=== PATIENT | male | born 1950 ===

== ENCOUNTER → 2019-05-30 15:20 | Outpatient (BNVA) | payer MEDICARE, SELFPAY | PROVIDERS: PCP Nurse Practitioner; Referring Provider Family Medicine; Visit Provider Surgery | DX: K40.90 Unilateral inguinal hernia, without obstruction or gangrene, not specified as recurrent (principal) | CPT/HCPCS: 99202 ==

== ENCOUNTER 2019-07-12 08:51 | Day surgery (SDC) | payer MEDICARE, SELFPAY ==
--- NOTE | 2019-07-12 08:46 | HPE_ITS ---
Date of service: 07/12/19 Time of Service: 08:47 Assessment and Plan (1) Left inguinal hernia: Current visit: No Status: Acute We discussed left inguinal hernia repair. The procedure was described including the risk of infection, bleeding, recurrence, chronic pain or numbness or vascular injury. The alternative is observation although hernias tend to enlarge and become more symptomatic over time. The patient was advised not to lift more than 15 pounds for one month postop. The patient agrees to proceed. History of Present Illness Narrative: Had some swelling and discomfort in left groin after lifting ramps for trailer. Still sore with prolonged walking. Helps to wear a brace. Not using any OTC meds. Owns repair shop, works on motorcycles, etc.. Review of Systems Constitutional Denies fatigue and Denies headache(s) Eyes Denies change in vision ENT Denies headache(s) and Denies neck mass Cardiovascular Denies chest pain, Denies edema, Denies palpitations and Denies dyspnea Respiratory Denies cough, Denies dyspnea and Denies wheezing Gastrointestinal Denies abdominal pain, Denies hematochezia and Denies change in bowel habits Genitourinary Denies dysuria Musculoskeletal Denies joint swelling Integumentary/Breasts Denies new lesions and Denies rash Neurologic Denies confusion, Denies headache(s) and Denies focal weakness Psychiatric Reports system reviewed and no additional complaints, except as docu and Denies confusion Endocrine Denies fatigue and Denies palpitations Hematologic/Lymphatic Denies easy bleeding and Denies lymphadenopathy Allergic/Immunologic Denies wheezing [facility] Medical History Calcium kidney stone (Resolved) Fracture of left clavicle (Resolved) Hyperlipidemia (Chronic) Left inguinal hernia (Acute) Surgical History H/O nasal septoplasty (Resolved) S/P right rotator cuff repair (Resolved) Family History Other Cancer Social History Smoking/Tobacco Use Status: Never Second Hand Exposure: Yes Alcohol Intake: current Alcohol Intake frequency: a few times a week Alcohol type: wine Drug use: Never Substance use type: does not use Do you feel safe at home: Yes Do you feel safe in your relationship?: Yes Additional Social history: Owns repair shop Meds Home Medications Medication Instructions Recorded Confirmed Type Unknown [No Known Home Meds] 05/19/19 05/30/19 History Allergies Allergy/AdvReac Type Severity Reaction Status Date / Time No Known Allergies Allergy Verified 05/30/19 15:54 Exam Const General: healthy appearing and not in acute distress Nutritional Appearance: well nourished Orientation: oriented x3 HENMT Head: normal to inspection Eyes Sclera: sclerae normal Pupils: PERRL Neck Neck: no lymphadenopathy Thyroid: thyroid normal Resp Effort & Inspection: normal respiratory effort Auscultation: clear to auscultation bilaterally and no wheezes Cardio Rate: regular rate Rhythm: regular rhythm GI Inspection: non-distended Palpation: soft, no hepatosplenomegaly and nontender Other: Reducible left inguinal hernia present Skin General skin exam: no rashes or lesions noted Neuro General: alert Cognition: normal cognition Extrem General: normal to inspection Psych Affect: normal affect Attitude: cooperative
--- NOTE | 2019-07-12 09:00 | ROE_ITS ---
DATE: JULY 12, 2019 Preoperative Diagnosis: Left inguinal hernia Postoperative Diagnosis: Left indirect inguinal hernia Operation: Left inguinal hernia repair with mesh Anesthesia: Local, TAP block and general. Surgeon: Yudy Yang M.D. Indications: This is a 69 year-old man with a bothersome yet reducible left inguinal hernia. He presents for repair. Procedure: The patient was placed supine on the operating table. After induction of general anesthetic, he had a TAP block placed. His left groin was then prepped and draped sterilely. The skin between the anterior superior iliac spine and pubic tubercle was infiltrated with local anesthetic and a small transverse incision was made. The subcutaneous tissue was divided with cautery. A vein was clamped, divided and ligated with #3-0 Vicryl ties. The external oblique fascia was identified was identified. A small incision was mad and extended through the external ring bluntly. This incision was also extended laterally. The spermatic cord was encircled at the level of the pubic tubercle with a Ricarda drain. There was a large cord lipoma that was dissected up to the internal ring and had a very narrow base. This was clamped, amputated and the remaining side ligated with #3-0 Vicryl tie. The hernia sac was moderated sized. It was dissected free from the spermatic cord using blunt and cautery dissection. It was then reduced through the internal ring. A medium sized plug was sutured in with a #2-0 Prolene stitch. A flat sheet of mesh was then placed in the floor of the inguinal canal and sutured in position in standard Bonita fashion. There was good hemostasis so the external oblique fascia was closed with a running #3-0 Vicryl stitch as was Hollis's fascia and the ski was closed with a running #4-0 Monocryl subcuticular stitch. He tolerated the procedure well and was stable to recovery. cc: Fabiana Mehta M.D.
[2019-07-12 09:16] VITALS: BP 146/85; PULSE 67; RESP 16; TEMP 36.1; O2SAT 95
[2019-07-12] MEDS: Lactated Ringers 1,000 ML 80 ML IV (09:44)
[2019-07-12] MEDS: ceFAZolin 2 GM/50 ML BAG IVPB (10:04)
--- NOTE | 2019-07-12 10:05 | PDOC.DSDIS_ITS ---
Discharge Plan Disposition Patient Disposition: HOME Condition: Good Discharge Details Reason For Visit: Left inguinal hernia repair Attending Provider: Yudy Yang Primary Care Provider: Fabiana Mehta Home Meds and New Rx's Prescriptions: Continued ibuprofen 200 mg Tablet 600 mg PO PRN PRNRF: 0 One Daily For Men 50+ Advanced 400-600-120 mcg-mcg-mg Tablet PO RF: 0 Discharge Instructions Additional Instructions: The top bandage can be removed tomorrow. The steri strips will usually stick for about a week. When the edges start to curl up, they can be removed. It is okay to shower tomorrow, the water can run over the steri strips Do not swim or soak in a tub for two weeks Call for any concerns including fever, increased pain, vomiting, incision red ness or drainage. Do not lift more than 15 pounds for four weeks. Walking and stairs are fine. Do not drive if on narcotic pain meds or if pain prevents safe driving. Constipation is not unusual. It is okay to take a stool softener or milk of magnesia if needed. Stand Alone Forms: Anes.Nerve Block Instructions, DSU Post op Instructions, Brandon Fajardo ([facility]) Referrals: Yudy Yang MD [ [facility] STAFF PHYSICIAN] - (Return in 10-14 days for a postop check) Activity:: Do not lift over 15 pounds for 4 weeks Shower/Bathe:: 24 hours Diet:: As Tolerated Discharge Orders Discharge Orders: Discharge Order (Routine); Ordered 07/12/19 Ordered By: Yudy Yang DS: Diagnosis Discharge Diagnosis (1) Left inguinal hernia: Status: Acute (2) S/P left inguinal hernia repair:
[2019-07-12] MEDS: Bupivacaine 0.25% Pres-Free 30 ML VIAL (10:30)
[2019-07-12 11:33] VITALS: BP 128/74; PULSE 62; RESP 13; TEMP 36.4; O2SAT 97
[2019-07-12 11:38] VITALS: BP 130/72; PULSE 61; RESP 15; TEMP 36.4; O2SAT 96
[2019-07-12 11:43] VITALS: BP 149/74; PULSE 66; RESP 16; TEMP 36.4; O2SAT 98
[2019-07-12 11:58] VITALS: BP 166/89; PULSE 65; RESP 19; TEMP 36.4; O2SAT 97
[2019-07-12 12:47] VITALS: BP 147/85; PULSE 93; RESP 16; TEMP 36.3; O2SAT 97
== END 2019-07-12 13:40 | disposition home or self-care (01) ==
PROVIDERS: PCP Family Medicine; Visit Provider Surgery
PROC: (CPT 49505; principal; 2019-07-12 10:00)
DX: K40.90 Unilateral inguinal hernia, without obstruction or gangrene, not specified as recurrent (principal); D17.6 Benign lipomatous neoplasm of spermatic cord; G89.18 Other acute postprocedural pain
CPT/HCPCS: 49505; 76942; NC; C1781; J0690; J1100; J1885; J2250; J2405

== ENCOUNTER → 2019-08-01 09:51 | Outpatient (BNVA) | payer MEDICARE, SELFPAY | PROVIDERS: PCP Family Medicine; Referring Provider Family Medicine; Visit Provider Surgery | DX: Z48.815 Encounter for surgical aftercare following surgery on the digestive system (principal); Z87.19 Personal history of other diseases of the digestive system ==

== ENCOUNTER 2019-11-09 09:25 | Outpatient (REF) | payer MEDICARE, SELFPAY ==
[2019-11-09 22:05] LABS: HCT 48.8 % (40.0-50.0); HGB 16.4 g/dL (13.5-17.5); Mean Corp. HGB Concentration 33.6 g/dL (32.0-36.0); Mean Corpuscular Hemoglobin 31.8 pg (27.0-33.0); Mean Corpuscular Volume 94.6 fL (80-95); Mean Platelet Volume 9.8 fL (8.0-11.0); Platelet Count 197 x1000/uL (130-400); RBC 5.16 m/cumm (4.50-6.00); RBC Distribution Width 12.3 % (11.8-14.1)
[2019-11-09 22:09] LABS: ALT 32 U/L (16-63); AST 15 U/L (15-37); Albumin 3.8 g/dL (3.4-5.0); Alkaline Phosphatase 83 U/L (46-116); Anion Gap 6.1 mmol/L (3-11); BUN 21 mg/dL (7-18); Bilirubin, Total 0.6 mg/dL (0.2-1.0); CO2 30.9 mmol/L (21.0-32.0); CREATININE 0.97 mg/dL (0.70-1.30); Calculated LDL 212 mg/dL; Chloride 107 mmol/L (98-107); Cholesterol 292 mg/dL (<200); Glucose 93 mg/dL (74-106); HDL Cholesterol 65 mg/dL (40-60); Sodium 144 mmol/L (136-145); Total Protein 7.4 g/dL (6.4-8.2); Triglyceride 75 mg/dL (<150)
[2019-11-11 11:49] LABS: PSA, Screening 0.5 ng/mL (0.0-4.5)
== END 2019-11-09 09:45 ==
LOC: NCHCN 09:25
PROVIDERS: PCP Family Medicine; Visit Provider Family Medicine
DX: E78.5 Hyperlipidemia, unspecified (principal); N20.0 Calculus of kidney; Z12.5 Encounter for screening for malignant neoplasm of prostate
CPT/HCPCS: 80053; 80061; 84153; 85027

== ENCOUNTER 2021-09-05 16:34 | Emergency (ER) | payer MEDICARE, SELFPAY ==
[2021-09-05 16:38] VITALS: BP 153/76; PULSE 54; RESP 14; O2SAT 97
--- NOTE | 2021-09-05 16:45 | DI.CT_ITS ---
Exam(s) CT RENAL COLIC WO EXAM: CT RENAL COLIC WO CLINICAL HISTORY: Right Flank pain. TECHNIQUE: Imaging Protocol: Axial computed tomography images with coronal and sagittal reformatted images were created and reviewed. CONTRAST MATERIAL: Noncontrast COMPARISON: No exams were available for comparison FINDINGS: ABDOMEN: Lung Bases: Normal where visualized. Small hiatal hernia. Liver: Normal attenuation. No measurable mass. Gallbladder and biliary tract: No radiodense calculus or dilation. Pancreas: Normal density, no calcifications or inflammatory process. Spleen: Normal. Kidneys: Normal size, contour and axis. Moderate right hydronephrosis secondary to a [address] one in the upper right ureter. Bilateral small nonobstructing renal calculi. Adrenal glands: No masses seen. Abdominal Aorta: Abdominal portion non-dilated. Minimal calcification. Small fatty containing umbilical hernia. PELVIS: Bladder: Symmetric distention, no gross wall thickening. Bowel: No obstruction or bowel wall thickening. Appendix normal. Minimal diverticulosis. Peritoneal cavity: No ascites, collection or mesenteric inflammatory response. Prostate calcification s. Prostate normal in size. Bones: Within normal limits. Previous left inguinal hernia repair. Small small fatty containing right inguinal hernia. IMPRESSION: Moderate right hydronephrosis secondary to a 7 millimeter calculus in the proximal right ureter. Oth er small bilateral nonobstructing stones are present. RADIATION DOSE DELIVERED: 761.25mGy.cm Total DLP DATA REPOSITORY: All CT scans at this facility are submitted to the National Radiology Data Registry (NRDR) Dose Index Registry (DIR) with the [employer] (ACR). RADIATION OPTIMIZATION: All CT scans at this facility use at least one of these dose optimization te chniques: automated exposure control; mA and/or kV adjustment per patient size (includes targeted exa ms where dose is matched to clinical indication); or iterative reconstruction.
[2021-09-05 17:04] LABS: Abs Immature Grans 0.02 10^3/uL (0.0-0.06); Absolute Basophil Count 0.03 10^3/uL (0.0-0.2); Absolute Eosinophil Count 0.24 10^3/uL (0.0-0.7); Absolute Lymphocyte Count 1.23 10^3/uL (1.2-3.4); Absolute Monocyte Count 0.56 10^3/uL (0.1-0.8); Absolute Neutrophil Count 4.73 10^3/uL (1.2-6.7); Basophils % 0.4; Eosinophils % 3.5; HCT 46.2 % (40.0-50.0); HGB 15.4 g/dL (13.5-17.5); Immature Grans % 0.3; Lymphocytes % 18.1; MCH 33.3 pg (27.0-33.0); MCHC 33.3 % (32.0-36.0); MPV 9.7 fL (8.0-11.0); Monocytes % 8.2; Neutrophils % 69.5; Nucleated RBC 0 %; Platelet Count 154 10^3/uL (130-400); RBC 4.62 10^6/uL (4.36-5.78); RDW 11.4 % (11.8-14.1); RDW-SD 41.3 fL; WBC 6.81 10^3/uL (4.4-10.8)
[2021-09-05 17:17] LABS: ALT 27 U/L (16-63); AST 17 U/L (15-37); Albumin 3.6 g/dL (3.4-5.0); Alkaline Phosphatase 84 U/L (46-116); Anion Gap 4.4 mmol/L (3-11); BUN 27 mg/dL (7-18); Bilirubin, Total 0.5 mg/dL (0.2-1.0); CO2 31.6 mmol/L (21.0-32.0); CREATININE 1.3 mg/dL (0.70-1.30); Calcium 9.7 mg/dL (8.5-10.1); Chloride 105 mmol/L (98-107); Estimated GFR 54.73 (mL/min/1.73m2); Glucose 114 mg/dL (74-106); Potassium 4.7 mmol/L (3.5-5.1); Sodium 141 mmol/L (136-145); Total Protein 7.6 g/dL (6.4-8.2)
--- NOTE | 2021-09-05 17:22 | W.ED.GENAD ---
Discharge Plan Disposition Patient Disposition: HOME Condition: Stable Discharge Details Clinical Impression: Calculus of proximal right ureter Primary Care Provider: Fabiana Mehta ED Provider: Mel Wood Home Meds and New Rx's Prescriptions: New tamsulosin 0.4 mg capsule 0.4 mg PO QHS 7 Days Qty: 7 RF: 0 hydrocodone-acetaminophen 5-325 mg tablet 1 tab PO Q8H PRN (Reason: pain) Qty: 6 RF: 0 No Action ibuprofen 200 mg Tablet 600 mg PO PRN PRNRF: 0 One Daily For Men 50+ Advanced 400-600-120 mcg-mcg-mg Tablet PO RF: 0 Discharge Instructions Instructions: Kidney Stones (ED), How to Strain Your Urine (ED) Additional Instructions: You have a 7 mm right kidney stone in your ureter. Please take the pain medication, Flomax and nausea medication as directed. Do not take any extra Tylenol with the pain medication. Take pain medication with food do not drive while taking this medication as it will make you sleepy. If you become dizzy or lightheaded please stop the tamsulosin. Call urology in the a.m. to make an appointment. Return to the ED for any fever, chills, inability to urinate or any concerns. Referrals: Fabiana Mehta [Primary Care Provider] - Jensen George MD [ [facility] STAFF PHYSICIAN] - 1 day Korina Rodriguez DNP [NURSE PRACTITIONER] - 5 days Medical Decision Making 71-year-old male presents to the ER with chief complaint of right flank pain which began approximately an hour and half prior to arrival per his . He reports acute onset positive nausea vomiting x2. She denies any fever chills. He does have a history of kidney stones approximately 20 years ago. He did not take any medication prior to arrival for pain. Denies any other associated symptoms. Past medical history includes kidney stone, hyperlipidemia, left inguinal hernia with repair. Right rotator cuff repair. 180: Patient reevaluation, pain much improved after Toradol and Zofran. Patient denies any fever chills flank pain or any other associated symptoms. He reports history of kidney stones. Does not currently see a urologist. [facility] CT Report: FINDINGS: Lungs: The visualized portions of the lung bases are normal. Diaphragm: Small hiatal hernia. Liver: Normal. No mass. Gallbladder and bile ducts: There has been a cholecystectomy. Pancreas: Normal. No ductal dilation. Spleen: Normal. No splenomegaly. Adrenal glands: Normal. No mass. Kidneys and ureters: Right moderate hydronephrosis secondary to 7 mm obstructing renal stone within the proximal right ureter. Several small calcifications are noted throughout both kidneys compatible with nonobstructing renal stones. Stomach and bowel: Mild diverticulosis is present in the distal colon. Appendix: No evidence of appendicitis. Intraperitoneal space: Unremarkable. No free air. No significant fluid collection. Vasculature: The vasculature demonstrates diffuse mild atherosclerotic calcification. Lymph nodes: Unremarkable. No enlarged lymph nodes. Urinary bladder: Unremarkable as visualized. Reproductive: Coarse calcifications within the prostate gland. Bones/joints: Unremarkable. No acute fracture. Soft tissues: Unremarkable. IMPRESSION: 1. Right moderate hydronephrosis secondary to 7 mm obstructing renal stone within the proximal right ureter. 2. Mild sigmoid diverticulosis. 3. Small hiatal hernia. Thank you for allowing us to participate in the care of your patient. Dictated and Authenticated by: Golden Dave MD [id number]: CBC shows no leukocytosis, CMP shows BUN 27 creatinine 1.3 GFR 54.73 glucose 114 urinalysis is pending at this time. Urinalysis shows no evidence for urinary tract infection. Given tamsulosin here in the department, Zofran 4 mg to go, and hydrocodone and Tylenol to go. Tamsulosin prescription ordered. Instructed on follow-up with urology LIBBY and strict return instructions, verbalized understanding. Patient remained hemodynamically stable throughout stay. This text was generated using [employer] dictation system, please disregard any oddities of phrase or misspellings. HPI General Mode of arrival: ambulatory. Date/Time Provider Initiated Documentation: 09/05/21 16:48. Limitations to Documentation: no limitations. Information obtained by: patient, family, RN notes reviewed and old records reviewed. HPI Narrative: 71-year-old male presents to the ER with chief complaint of right flank pain which began approximately an hour and half prior to arrival per his . He reports acute onset positive nausea vomiting x2. She denies any fever chills. He does have a history of kidney stones approximately 20 years ago. He did not take any medication prior to arrival for pain. Denies any other associated symptoms. Past medical history includes kidney stone, hyperlipidemia, left inguinal hernia with repair. Right rotator cuff repair. Related Data Home Medications Medication Instructions Recorded Confirmed One Daily For Men 50+ Advanced tab PO 07/12/19 08/01/19 ibuprofen 600 mg PO PRN PRN 07/12/19 09/05/21 hydrocodone-acetaminophen 1 tab PO Q8H PRN #6 tab 09/05/21 tamsulosin 0.4 mg PO QHS 7 Days #7 cap 09/05/21 Previous Rx's Medication Instructions Recorded hydrocodone-acetaminophen 1 tab PO Q8H PRN #6 tab 09/05/21 tamsulosin 0.4 mg PO QHS 7 Days #7 cap 09/05/21 Allergies Allergy/AdvReac Type Severity Reaction Status Date / Time No Known Allergies Allergy Verified 09/05/21 16:41 General Stated Complaint: FlankPain KARISHMA: 3 Review of Systems All systems reviewed & are unremarkable except as noted in HPI and below Genitourinary Genitourinary: Reports as per HPI, Denies difficulty urinating, Denies genital lesions, Denies genital pain, Denies dysuria, Reports flank pain, Denies scrotal swelling and Denies testicular mass [facility] Medical History (Updated 09/05/21 @ 18:57 by Mel Wood) Calcium kidney stone Fracture of left clavicle Hyperlipidemia Left inguinal hernia 07/12/19 left inguinal hernia repair, Dr Yudy Yang, [facility] Surgical History (Updated 07/12/19 @ 11:55 by Yudy Yang MD) H/O nasal septoplasty S/P left inguinal hernia repair 07/12/19 S/P right rotator cuff repair Family History Other Cancer Social History Smoking/Tobacco Use Status: Never Second Hand Exposure: Yes Smoking risk assessment performed?: Yes Alcohol Intake: current Alcohol Intake frequency: a few times a week Alcohol type: wine Drug use: Never Substance use type: does not use Do you feel safe at home: Yes Do you feel safe in your relationship?: Yes Additional Social history: Owns repair shop Exam Narrative Exam Narrative: Constitutional: Alert and oriented x3. Appears stated age. Normal body habitus. Head: Normocephalic, no trauma. Eyes: Pupils PERRLA, Red reflex noted, EOM's intact. Eyelids symmetrical without lesions, discharge, or swelling. Chest: RRR, Normal S1, S2, distal pulses intact. Resp: Lungs clear to auscultation bilaterally, no wheezes, rales, or rhonchi. Abdomen: Soft, nontender to palpation all 4 quadrants. No CVA tenderness bilaterally. Musculoskeletal: Normal gait, 5/5 strength to all four extremities. Skin: No suspicious rashes or lesions. Capillary refill less than 2 sec. Neurologic: Cranial nerves II-XII intact. Alert and oriented x 3. Hematologic/Lymphatic: No ecchymosis, no lymphadenopathy. Course Vital Signs Vital signs: Vital Signs Pulse 54 L 09/05/21 16:38 Respiratory Rate 14 09/05/21 16:38 Blood Pressure 153/76 H 09/05/21 16:38 Pulse Oximetry 97 09/05/21 16:38 Pulse 54 L 09/05/21 16:38 Respiratory Rate 14 09/05/21 16:38 Respiratory Effort Non-Labored 09/05/21 16:42 Blood Pressure 153/76 H 09/05/21 16:38 Blood Pressure Position Sitting 09/05/21 16:38 Pulse Oximetry 97 09/05/21 16:38 Oxygen Delivery Method Room Air 09/05/21 16:38 Oxygen Flow Rate 0 09/05/21 16:38 Pain Level 6 09/05/21 16:42 Lab/Test Results Lab/Test Results: Laboratory Tests Range/Units 09/05/21 16:53 WBC (4.4-10.8) 10^3/uL 6.81 RBC (4.36-5.78) 10^6/uL 4.62 Hgb (13.5-17.5) g/dL 15.4 Hct (40.0-50.0) % 46.2 MCV (80-95) fL 100.0 H MCH (27.0-33.0) pg 33.3 H MCHC (32.0-36.0) % 33.3 RDW (11.8-14.1) % 11.4 L Plt Count (130-400) 10^3/uL 154 MPV (8.0-11.0) fL 9.7 Immature Gran % 0.3 Neutrophils % 69.5 Lymphocytes % 18.1 Monocytes % 8.2 Eosinophils % 3.5 Basophils % 0.4 Nucleated RBC % % 0 Absolute Neutrophils (1.2-6.7) 10^3/uL 4.73 Absolute Lymphocytes (1.2-3.4) 10^3/uL 1.23 Absolute Monocytes (0.1-0.8) 10^3/uL 0.56 Absolute Eosinophils (0.0-0.7) 10^3/uL 0.24 Absolute Basophils (0.0-0.2) 10^3/uL 0.03 PAWSS Have you Been Recently Intoxicated or Drunk Within the Last 30 days?: No Have you Ever Experienced Previous Episodes of Alcohol Withdrawal?: No Have you ever Experienced Withdrawal Seizures?: No Have you ever Experienced Delirium Tremens(DT)s?: No Have you ever undergone Alcohol Rehabilitation Treatment (i.e, inpt ot outpatient treatment programs)?: No Have you ever Experienced Blackouts?: No Have you ever Combined Alcohol with other Downers within the last 90 days?: No Have you ever Combined Alcohol with any other Substance of Abuse during the last 90 days?: No Positive Blood Alcohol level on Presentation? [PCS.BAL]: No Evidence of Increased Autonomic Activity (i.e. HR>120, tremor, sweating, agitation, nausea)?: No Result: 0
[2021-09-05] MEDS: Ketorolac 30 MG/ML VIAL IVP (17:31)
[2021-09-05] MEDS: Ondansetron 4 MG/2 ML VIAL IVP (17:31)
[2021-09-05] MEDS: Normal Saline 1,000 ML 250 ML IV (17:31)
--- NOTE | 2021-09-05 17:50 | DI.VRAD_ITS ---
PROCEDURE INFORMATION: Exam: CT Abdomen And Pelvis Without Contrast Exam date and time: 09/05/2021 4:53 PM Age: 71 years old Clinical indication: Abdominal pain; Flank; Right TECHNIQUE: Imaging protocol: Computed tomography of the abdomen and pelvis without contrast. COMPARISON: No relevant prior studies available. FINDINGS: Lungs: The visualized portions of the lung bases are normal. Diaphragm: Small hiatal hernia. Liver: Normal. No mass. Gallbladder and bile ducts: There has been a cholecystectomy. Pancreas: Normal. No ductal dilation. Spleen: Normal. No splenomegaly. Adrenal glands: Normal. No mass. Kidneys and ureters: Right moderate hydronephrosis secondary to 7 mm obstructing renal stone within the proximal right ureter. Several small calcifications are noted throughout both kidneys compatible with nonobstructing renal stones. Stomach and bowel: Mild diverticulosis is present in the distal colon. Appendix: No evidence of appendicitis. Intraperitoneal space: Unremarkable. No free air. No significant fluid collection. Vasculature: The vasculature demonstrates diffuse mild atherosclerotic calcification. Lymph nodes: Unremarkable. No enlarged lymph nodes. Urinary bladder: Unremarkable as visualized. Reproductive: Coarse calcifications within the prostate gland. Bones/joints: Unremarkable. No acute fracture. Soft tissues: Unremarkable. IMPRESSION: 1. Right moderate hydronephrosis secondary to 7 mm obstructing renal stone within the proximal right ureter. 2. Mild sigmoid diverticulosis. 3. Small hiatal hernia. Dictated and Authenticated by: Golden Dave MD. Ordering:ROWDY Leal MD
[2021-09-05] MEDS: Tamsulosin 0.4 MG CAPCR PO (18:10)
[2021-09-05] MEDS: HYDROcodone 5/Acetaminophen 325 TAB PO (18:46)
[2021-09-05 18:50] LABS: Bilirubin Negative (Negative); Blood Moderate (Negative); Clarity Cloudy (Clear); Glucose Negative (Negative); Ketones 15 mg/dL (Negative); Leukocyte Esterase Negative (Negative); Nitrite Negative (Negative); Specific Gravity 1.025 (1.005-1.025); Urobilinogen 0.2 EU/dL (Up TO 0.2)
[2021-09-05 19:03] LABS: Bacteria Negative HPF (Negative); C & S Indicated? No; Crystals Many Amorphous HPF (Negative); Epithelial Cells Negative HPF (Negative); Mucus Negative (Negative); WBC Negative HPF (0-5)
[2021-09-05 19:12] VITALS: BP 124/53; PULSE 92; RESP 14; O2SAT 97
--- NOTE | 2021-09-05 19:21 | NUR.NOTE ---
Referral faxed to [facility] for follow up of ureteral stone.Nursing Note:
== END 2021-09-05 19:09 | disposition home or self-care (01) ==
PROVIDERS: Emergency Provider Registered Nurse Emergency; PCP Family Medicine
DX: N20.1 Calculus of ureter (principal); Z87.442 Personal history of urinary calculi
CPT/HCPCS: 36415; 80053; 96374; 96375; 99284; 74176; 81003; 81015; 85025; J1885; J2405

== ENCOUNTER 2021-09-06 21:02 | Emergency (ER) | payer MEDICARE, SELFPAY ==
[2021-09-06 21:05] VITALS: BP 167/78; PULSE 78; RESP 18; TEMP 36.6; O2SAT 98
--- NOTE | 2021-09-06 21:17 | ED.GENADUL_ITS ---
Discharge Plan Disposition Patient Disposition: HOME Condition: Improving Discharge Details Clinical Impression: Calculus of proximal right ureter Primary Care Provider: Fabiana Mehta ED Provider: Kerri Brown Home Meds and New Rx's Prescriptions: Continued ibuprofen 200 mg Tablet 600 mg PO PRN PRNRF: 0 One Daily For Men 50+ Advanced 400-600-120 mcg-mcg-mg Tablet 1 tab PO DAILY RF: 0 tamsulosin 0.4 mg capsule 0.4 mg PO QHS 7 Days Qty: 7 RF: 0 hydrocodone-acetaminophen 5-325 mg tablet 1 tab PO Q8H PRN (Reason: pain) Qty: 6 RF: 0 Discharge Instructions Instructions: Kidney Stones (ED), How to Strain Your Urine (ED) Additional Instructions: Please continue with previous plan. Please encourage hydration. You may continue with Tylenol and/or ibuprofen as needed for discomfort. You may augment this with the hydrocodone as prescribed. Please take care that the hydrocodone does have Tylenol in it. Do not exceed 3000 mg of Tylenol a day. The anti-inflammatory like ibuprofen may have the most benefit for your pain as he did here. You may take your next dose tomorrow morning when you wake up. Please strain your urine as discussed by nursing staff and bring stone with you, if possible, to your urology appointment. Please call urology on Thursday to discuss follow-up appointment. If you develop fever/chills, uncontrolled pain or other new/worsening symptom please seek care urgently once again. Referrals: Fabiana Mehta [Primary Care Provider] - Jensen George MD [ 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 Patient was seen here yesterday for the same was diagnosed with an obstructing 7 mm right kidney stone. Was prescribed Flomax and hydrocodone. Patient is not taking the Flomax. States that this morning he woke with no pain. Not have any pain until around 5 PM today. Same pain as yesterday began once again. No nausea or vomiting this time however. States that he received 1 dose of the hydrocodone and that pain has persisted since then. He denies any fevers or chills. Pain has not changed or removed. Continues to have normal urination without any hematuria, increased urgency or urgency. He denies any change in bowel habits. On exam, patient appears nontoxic. He appears comfortable. Lungs are clear. Abdominal exam is benign. In the far lateral side of his does have some discomfort on the right side. No pain with CVA percussion. Patient I discussed treatment options. He did contact urology has an ap pointment with them on the . He did quite well regarding pain after Toradol yesterday. We will dose with IM Toradol here. Did not take his Flomax today, will give him this as well. Plan to also obtain repeat urinalysis. Do not see any evidence to suggest septicemia. He has been drinking and eating normally. Has not had any diminished hydration or change in urinary habits, recent suggest that his kidney function has declined. His abdomen is benign, no peritoneal findings. I do not see need at this time to repeat labs or imaging. Urinalysis reviewed and reassuring. Trace leukocyte esterase but negative bacteria. Negative nitrite. Patient's exam is reassuring as is his history, it is not consistent with infectious etiology. Reevaluated the patient. He reports his pain is all but completely subsided. He is feeling much improved and ready to go home. We discussed pain management at home. We discussed importance of using anti-inflammatories to help with the pain. Advised that he could take his next dose of NSAID in the morning. Advised to continue to encourage hydration, sounds like he has made an effort to do so today. Strict return precautions were discussed. He does sound frustrated that his appointment with urology team is not until the of this month. Advised that he could ask to get on a waiting list or cancellation list for more prompt appointment. All of his questions and concerns were addressed in agreement this plan. HPI General Mode of arrival: ambulatory . Date/Time Provider Initiated Documentation: 09/06/21 21:06 . Limitations to Documentation: no limitations . Information obtained by: patient, family (), RN notes reviewed and old records reviewed . History of Present Illness 71 year old M presents to the emergency department with the chief complaint of right sided flank/abdominal pain, described as severe, with intensity rated at 8. Quality is described as aching, and is localized to the abdomen. Patient reports no radiation. Patient started experiencing this day(s) and it has been intermittent. No relieving factors improve symptom(s), No exacerbating factors reported . Patient notes denies chest pain, cough, fever/chills, loss of appetite, nausea/vomiting, rash and shortness of breath. Patient did receive the following treatments prior to arrival, other (hydrocodone 1800) Related Data Home Medications Medication Instructions Recorded Confirmed One Daily For Men 50+ Advanced 1 tab PO DAILY 07/12/19 09/06/21 ibuprofen 600 mg PO PRN PRN 07/12/19 09/06/21 hydrocodone-acetaminophen 1 tab PO Q8H PRN #6 tab 09/05/21 09/06/21 tamsulosin 0.4 mg PO QHS 7 Days #7 cap 09/05/21 09/06/21 Previous Rx's Medication Instructions Recorded hydrocodone-acetaminophen 1 tab PO Q8H PRN #6 tab 09/05/21 tamsulosin 0.4 mg PO QHS 7 Days #7 cap 09/05/21 Allergies Allergy/AdvReac Type Severity Reaction Status Date / Time No Known Allergies Allergy Verified 09/06/21 21:11 General Stated Complaint: Urinary KARISHMA: 3 Review of Systems Constitutional Constitutional: Reports as per HPI, Denies chills, Denies fatigue, Denies fever(s) and Denies headache(s) ENT Ears, Nose, Mouth, and Throat: Denies headache(s) Cardiovascular Cardiovascular: Reports as per HPI, Denies chest pain and Denies dyspnea Respiratory Respiratory: Reports as per HPI, Denies cough and Denies dyspnea Gastrointestinal Gastrointestinal: Reports as per HPI Genitourinary Genitourinary: Reports as per HPI Musculoskeletal Musculoskeletal: Reports as per HPI Neurologic Neurologic: Denies headache(s) Endocrine Endocrine: Denies fatigue [facility] Medical History Calcium kidney stone Fracture of left clavicle Hyperlipidemia Left inguinal hernia 07/12/19 left inguinal hernia repair, Dr Yudy Yang, [facility] Surgical History H/O nasal septoplasty S/P left inguinal hernia repair 07/12/19 S/P right rotator cuff repair Family History Other Cancer Social History Smoking/Tobacco Use Status: Never Second Hand Exposure: Yes Smoking risk assessment performed?: Yes Alcohol Intake: current Alcohol Intake frequency: 0-2 drinks per day Alcohol ty pe: hard liquor Drug use: Never Substance use type: does not use Do you feel safe at home: Yes Do you feel safe in your relationship?: Yes Additional Social history: Owns repair shop Exam Const General: cooperative, healthy appearing, comfortable, no acute distress and well developed Nutritional Appearance: average body habitus and well nourished Orientation: alert and awake Resp Effort & Inspection: normal respiratory effort and no respiratory distress Auscultation: clear to auscultation bilaterally, no rales, no rhonchi and no wheezes Cardio Rate: regular rate Rhythm: regular rhythm Heart Sounds: S1 normal and S2 normal GI Inspection: normal to inspection, no edema and non-distended Palpation: soft, no hepatosplenomegaly, no guarding, no hernias, no pulsatile masses and nontender Percussion: normal to percussion Auscultation: normal bowel sounds Back/Spine/Pelvis Back: no CVA tenderness Skin General skin exam: no rashes or lesions noted Neuro General: patient alert and patient awake Cognition: normal cognition Speech: speech normal Gait: normal gait Psych Appearance: grossly normal and well kempt Mental Status: mental status grossly normal Speech and Movement: speech and movement normal Course Vital Signs Vital signs: Vital Signs Temperature 36.6 C 09/06/21 21:05 Pulse 78 09/06/21 21:05 Respiratory Rate 18 09/06/21 21:05 Blood Pressure 167/78 H 09/06/21 21:05 Pulse Oximetry 98 09/06/21 21:05 Temperature 36.6 C 09/06/21 21:05 Temperature Source Temporal Artery Scan 09/06/21 21:05 Pulse 78 09/06/21 21:05 Respiratory Rate 18 09/06/21 21:05 Respiratory Effort Non-Labored 09/06/21 21:13 Blood Pressure 167/78 H 09/06/21 21:05 Blood Pressure Position Sitting 09/06/21 21:05 Pulse Oximetry 98 09/06/21 21:05 Oxygen Delivery Method Room Air 09/06/21 21:05 Oxygen Flow Rate 0 09/06/21 21:05 Pain Level 8 09/06/21 21:05
[2021-09-06] MEDS: Ketorolac 30 MG/ML VIAL IM (21:36)
[2021-09-06] MEDS: Tamsulosin 0.4 MG CAPCR PO (21:36)
[2021-09-06 21:59] LABS: Bilirubin Negative (Negative); Blood Negative (Negative); Clarity Clear (Clear); Glucose Negative (Negative); Ketones Negative (Negative); Leukocyte Esterase Trace (Negative); Nitrite Negative (Negative); Specific Gravity 1.025 (1.005-1.025)
[2021-09-06 22:16] LABS: Bacteria Negative HPF (Negative); C & S Indicated? Yes; Casts Negative LPF (Negative); Crystals Few Calcium Oxalate HPF (Negative); Epithelial Cells Negative HPF (Negative); Mucus Negative (Negative); Other Cells Negative (Negative); RBC Negative HPF (0-2); WBC 0-2 HPF (0-5)
[2021-09-06 22:36] VITALS: BP 138/72; PULSE 80; RESP 16; TEMP 36.6; O2SAT 98
== END 2021-09-06 22:43 | disposition home or self-care (01) ==
PROVIDERS: Emergency Provider Physician Assistant; PCP Family Medicine
DX: N13.2 Hydronephrosis with renal and ureteral calculous obstruction (principal); R11.2 Nausea with vomiting, unspecified; Z87.442 Personal history of urinary calculi
CPT/HCPCS: 36415; 96361; 96374; 96375; 99284; 81003; 81015; 87086; 99285; J1885

== ENCOUNTER → 2021-09-13 08:46 | Outpatient (BNVA) | payer MEDICARE, SELFPAY | PROVIDERS: PCP Family Medicine; Referring Provider Family Medicine; Visit Provider Urology | DX: N20.1 Calculus of ureter (principal) | CPT/HCPCS: 99204; 99214 ==

== ENCOUNTER 2021-09-13 10:03 | Outpatient (REF) | payer MEDICARE, SELFPAY ==
[2021-09-13 12:33] LABS: Source Nasal/Nares
[2021-09-13 21:17] LABS: COVID-19 PCR Negative (Negative)
== END 2021-09-13 10:04 | disposition home or self-care (01) ==
LOC: LBN 10:03
PROVIDERS: PCP Family Medicine; Visit Provider Urology
DX: Z20.822 Contact with and (suspected) exposure to COVID-19 (principal); Z01.818 Encounter for other preprocedural examination
CPT/HCPCS: 87635

== ENCOUNTER 2021-09-16 07:21 | Day surgery (SDC) | payer MEDICARE, SELFPAY ==
[2021-09-16] VITALS (8 sets, daily range): BP systolic 92–141; BP diastolic 60–83; PULSE 51–73; RESP 13–17; TEMP 36.1–36.5; O2SAT 94–99; BMI 24.7
[2021-09-16] MEDS: Lactated Ringers 1,000 ML 80 ML IV (08:02)
--- NOTE | 2021-09-16 08:13 | W.PM.HP.N ---
Date of service: 09/16/21 Time of Service: 08:13 Assessment and Plan Assessment and plan (1) Calculus of proximal right ureter: Status: Acute History of Present Illness History of Present Illness Chief Complaint: right ureteral stone Narrative: This is a 71-year-old gentleman who has a distant history of kidney stones. He estimates that his last occurrence was about 20 years ago. He did not require surgery for that stone, but he does not recall if he passed the stone or if any type of chemical analysis was obtained. He developed an acute onset of right sided pain about a week ago. The pain was in the right flank. He developed some nausea and went to the emergency room. He was identified as having a right proximal ureteral stone and discharged on Flomax and pain medication. Since that time, he has had intermittent pain. The pain can remain in the right flank and also extend to the right groin. He has noticed an increased frequency of urination at night but is not having any urgency or dysuria. He has no gross hematuria. He has no known metabolic abnormalities such as gout or hyperparathyroid disease. He has not had any prior urologic surgery. Review of Systems Narrative: No fevers or chills No vision change or dysphasia No diabetes or thyroid No shortness of breath, cough or hemoptysis No chest pain or palpitations No nausea, vomiting, hepatitis, ulcers, jaundice, diarrhea or constipation No seizures, strokes or peripheral neuropathy No bleeding disorders or anemia No gout or arthralgia [facility] Medical History Calcium kidney stone Fracture of left clavicle Hyperlipidemia Left inguinal hernia 07/12/19 left inguinal hernia repair, Dr Yudy Yang, [facility] Surgical History H/O nasal septoplasty S/P left inguinal hernia repair 07/12/19 S/P right rotator cuff repair Family History Other Cancer Social History Smoking/Tobacco Use Status: Never Second Hand Exposure: Yes Smoking risk assessment performed?: Yes Alcohol Intake: current Alcohol Intake frequency: 0-2 drinks per day Alcohol type: hard liquor Drug use: Never Substance use type: does not use Do you feel safe at home: Yes Do you feel safe in your relationship?: Yes Additional Social history: Owns repair shop Meds Allergies and Home Medications Allergies Allergy/AdvReac Type Severity Reaction Status Date / Time No Known Allergies Allergy Verified 09/16/21 07:42 Home Medications Medication Instructions Recorded Confirmed Type ibuprofen 600 mg PO PRN PRN 07/12/19 09/16/21 History Exam Const General: cooperative, comfortable and no acute distress Neck Neck: supple Resp Effort & Inspection: normal respiratory effort Auscultation: clear to auscultation bilaterally Cardio Rate: regular rate Rhythm: regular rhythm GI Inspection: normal to inspection Palpation: no guarding Neuro General: patient alert, patient awake and patient oriented x3 Results Last Vital Signs Temp 36.5 C 09/16/21 07:38 Pulse 73 09/16/21 07:38 Resp 16 09/16/21 07:38 BP 141/80 H 09/16/21 07:38 Pulse Ox 98 09/16/21 07:38
--- NOTE | 2021-09-16 08:20 | ANES.PREOP_ITS ---
General Info Date of Service Date Performed: 09/16/21 Height: 5 ft 8 in Weight: 73.9 kg Body Mass Index (BMI): 24.7 Surgical Procedure: Operation Date: 09/16/21 08:40 Proposed Procedures Side Surgeon p Cystoscopy/Laser/Retrograde/Ureteroscopy, HOLMIUM LASER LITHO POSSIBLE SENT Right Jensen George MD Meds Allergies and Home Medications Allergies Allergy/AdvReac Type Severity Reaction Status Date / Time No Known Allergies Allergy Verified 09/16/21 07:42 Home Medication Medication Instructions Recorded ibuprofen 600 mg PO PRN PRN 07/12/19 Current Visit Medications: Current Medications Generic Name Dose Route Start Last Admin Trade Name Freq PRN Reason Stop Dose Admin Ringer's Solution 1,000 mls @ 80 mls/hr 09/16/21 06:00 09/16/21 08:02 IV 10/13/21 23:59 80 mls/hr INFUSION CATALINA Administration Cefazolin Sodium/Dextrose 2 gm in 50 mls @ 100 mls/hr 09/16/21 06:00 Ancef Duplex IVPB 09/16/21 16:00 PREOP CATALINA IV Miscellaneous Supplies 1 each 09/16/21 06:00 Iv Access IV 10/13/21 23:59 DIRECTED CATALINA Sodium Chloride 0 ml 09/16/21 06:00 Normal Saline Flush 10 Ml Syr IV 10/13/21 23:59 PRN PRN Sodium Chloride 0 ml 09/16/21 06:00 Normal Saline 10 Ml Vial IJ 10/13/21 23:59 DIRECTED PRN Sterile Water 0 ml 09/16/21 06:00 Water,Injection,Sterile 10 Ml Vial IJ 10/13/21 23:59 DIRECTED PRN PFSH Active Problems Active Problems: Problem Status Onset Code Calculus of proximal right ureter N20.1 Left inguinal hernia K40.90 Fracture of left clavicle S42.002A Medical History Medical History Calcium kidney stone Fracture of left clavicle Hyperlipidemia Left inguinal hernia 07/12/19 left inguinal hernia repair, Dr Yudy Yang, [facility] Surgical History Surgical History H/O nasal septoplasty S/P left inguinal hernia repair 07/12/19 S/P right rotator cuff repair Tobacco Smoking/Tobacco Use Status: Never Second hand exposure: Yes Alcohol Alcohol Intake: current Alcohol intake frequency: 0-2 drinks per day Alcohol type: hard liquor Substance Use Substance use: Never Substance use type: does not use Vital Signs and Lab Results Vital Signs Most Recent Vital Signs in EMR: Most Recent Vital Signs Temp Pulse Resp BP Pulse Ox 36.5 C 73 16 141/80 H 98 09/16/21 07:38 09/16/21 07:38 09/16/21 07:38 09/16/21 07:38 09/16/21 07:38 Lab Results Blood Type / Crossmatch: No Data to Display Complete Blood Count: White Blood Count 6.81 10^3/uL (4.4-10.8) 09/05/21 16:53 09/05/21 Red Blood Count 4.62 10^6/uL (4.36-5.78) 09/05/21 16:53 09/05/21 Hemoglobin 15.4 g/dL (13.5-17.5) 09/05/21 16:53 09/05/21 Hematocrit 46.2 % (40.0-50.0) 09/05/21 16:53 09/05/21 Platelet Count 154 10^3/uL (130-400) 09/05/21 16:53 09/05/21 Complete Metabolic Panel: Sodium Level 141 mmol/L (136-145) 09/05/21 16:53 09/05/21 Potassium Level 4.7 mmol/L (3.5-5.1) 09/05/21 16:53 09/05/21 Chloride Level 105 mmol/L (98-107) 09/05/21 16:53 09/05/21 Carbon Dioxide Level 31.6 mmol/L (21.0-32.0) 09/05/21 16:53 09/05/21 Blood Urea Nitrogen 27 mg/dL (7-18) H 09/05/21 16:53 09/05/21 Creatinine 1.3 mg/dL (0.70-1.30) 09/05/21 16:53 09/05/21 Estimated GFR/1.73 m2 54.73 (mL/min/1.73m2) 09/05/21 16:53 09/05/21 Calcium Level 9.7 mg/dL (8.5-10.1) 09/05/21 16:53 09/05/21 Albumin 3.6 g/dL (3.4-5.0) 09/05/21 16:53 09/05/21 Glucose Level 114 mg/dL (74-106) H 09/05/21 16:53 09/05/21 Liver Function Panel: Alanine Aminotransferase (ALT/SGPT) 27 U/L (16-63) 09/05/21 16:53 09/05/21 Aspartate Amino Transf (AST/SGOT) 17 U/L (15-37) 09/05/21 16:53 09/05/21 Coagulation Panel: No Data to Display Cardiac Panel: No Data to Display Arterial Blood Gas: No Data to Display Venous Blood Gas: No Data to Display Pancreas Panel: No Data to Display Thyroid Panel: No Data to Display Infectious Disease: Coronavirus (COVID-19)(PCR) Negative (Negative) 09/13/21 09:45 09/13/21 Coronavirus 2019 Source Nasal/Nares 09/13/21 09:45 09/13/21 Blood Cultures: No Data to Display Toxicology Panel: No Data to Display Anesthesia Assessment and Plan Anesthesia History Personal History: No History of Anesthesia Complications Family History: No Family History of Anesthesia Complications Exercise Tolerance Exercise Tolerance: Metabolic Equivalents>4 Pertinent Negatives Pertinent Negatives: No Symptoms of GERD Cardiac & Pulmonary Exam Cardiac Exam: Normal S1/S2 Heart Sounds Pulmonary Exam: Clear Bilateral Breath Sounds Airway Exam Known Difficult Airway: No Mallampati Class: 2 Mouth Opening: Normal (> 3cm) Thyromental Distance: Greater than 3 cm Neck Range of Motion: Full ROM Neck Circumference: Normal Teeth Condition: Normal Dentition ASA Classification ASA Score: ASA 2 Emergency Case?: No NPO Status NPO Status: NPO Clears >2 hours, Solids >8 hours Anesthesia Plan Resuscitation Status: Full Code Anesthesia Technique: General Anesthesia Airway Planned: LMA Monitors Used: Standard Monitors
[2021-09-16] MEDS: ceFAZolin 2 GM/50 ML BAG IVPB (09:03)
[2021-09-16] MEDS: Lidocaine 2% Jelly 6 ML SYR (09:20)
[2021-09-16] MEDS: Omnipaque 300 MG/ML 50 ML BTL (09:23)
--- NOTE | 2021-09-16 10:55 | DI.RAD_ITS ---
Exam(s) XR RETROGRADE IN OR EXAM: XR RETROGRADE IN OR CLINICAL HISTORY: CALCULUS PROXIMAL RIGHT URETER. TECHNIQUE: 2D digital imaging was performed. COMPARISON: No exams were available for comparison FINDINGS: Fluoroscopy was provided during urologic procedure. See procedure report for details. Total cumulative dose 39.33 mGy IMPRESSION: DATA REPOSITORY: RADIATION DOSE DELIVERED:
--- NOTE | 2021-09-16 11:02 | W.PM.DSUDISC ---
Discharge Plan Disposition Patient Disposition: HOME Condition: Stable Discharge Details Reason For Visit: (R) URETERAL STONE Attending Provider: Jensen George Primary Care Provider: Fabiana Mehta Home Meds and New Rx's Prescriptions: No Action ibuprofen 200 mg Tablet 600 mg PO PRN PRNRF: 0 Discharge Instructions Additional Instructions: Pt will need return to OR for cystoscopy, stent removal, retrograde pyelogram and ureteroscopy to insure all fragments have been removed - my office will contact pt to make arrangements no need to strain urine Activity:: Activity as Tolerated Shower/Bathe:: 24 hours Diet:: As Tolerated Discharge Orders Discharge Orders: Discharge Order (Routine); Ordered 09/16/21 Ordered By: Jensen George DS: Diagnosis Discharge Diagnosis (1) Calculus of proximal right ureter: Status: Acute
[2021-09-16] MEDS: HYDROcodone 5/Acetaminophen 325 TAB PO (12:36)
[2021-09-16] MEDS: Phenazopyridine 200 MG TAB PO (12:36)
--- NOTE | 2021-09-16 13:36 | W.ANESPOSTOP ---
Postoperative Evaluation Date, Time and Location Date Performed: 09/16/21 Time Performed: 13:36 Patient Location: Day Surgery Unit Vital Signs Most Recent Imported Vital Signs: Most Recent Vital Signs Temp Pulse Resp BP Pulse Ox 36.3 C L 59 L 16 97/60 L 97 09/16/21 13:12 09/16/21 13:12 09/16/21 13:12 09/16/21 13:12 09/16/21 13:12 Pain Score Most Recent Pain Score: Most Recent Pain Score Pain Level 5 09/16/21 13:12 Assessment Mental Status: Awake (Alert & Oriented to Patient Baseline) Airway and Respiratory Function: Patent airway with normal (patient baseline) respiratory exam Cardiovascular Function: Hemodynamically Stable Hydration Status: Adequately Hydrated Nausea & Vomiting: No Nausea or Vomiting Pain: Pain is tolerable per patient Peripheral Nerve Block: Patient did not receive a nerve block
--- NOTE | 2021-09-16 16:17 | ROE_ITS ---
Date of service: 09/16/21 Time of Service: 16:17 Operative Note Operative Note DATE OF PROCEDURE: 09/16/21 PRE-OP DIAGNOSIS: Ureteral stone PROCEDURE: Cystoscopy, right retrograde pyelogram, right ureteroscopy, holmium laser lithotripsy of ureteral stone, extraction of stone fragments, insert right ureteral stent SURGEON: Jensen George ANESTHESIA TYPE: Local By Surgeon and General LMA/ETT Refer to Anesthesia Record ESTIMATED BLOOD LOSS: 25 PATHOLOGY: other (stones for chemical analysis) COMPLICATIONS: None Patient was transported to: PACU Patient's condition: stable Implants: 4.8 Ethiopian by 22 to 30 cm right ureteral stent Indications: Is a 71-year-old gentleman who presented to the emergency room with right abdominal pain. He was identified as having a right proximal ureteral stone that has not progressed. He presents now for stone manipulation Findings: Ureteral stone Procedure Description: Patient was brought to the operating room on 09/16/21. He was given preoperative IV antibiotics. After successful induction of general anesthesia, he was placed in the dorsal lithotomy position. His genitalia was prepped and draped. 2% Xylocaine jelly was instilled into the urethra to act as a local anesthetic. A 22 Ethiopian rigid cystoscope was passed through the urethra into the bladder. The urethra and bladder were inspected using a 30 degree lens. The pendulous, bulbar and membranous urethra was all appeared normal with no strictures. The prostatic urethra showed some lateral lobe enlargement. The bladder neck was entered and the bladder mucosa was inspected. The right ureteral orifice was visualized and the orifice was cannulated with a 6 Ethiopian access catheter. Initial injection of contrast showed extravasation at the ureteral orifice. I was then able to pass a guidewire through the lumen of the access catheter up the ureter. I passed the access catheter over the wire to the distal ureter and injected Omnipaque for retrograde pyelogram. This outlined the proximal right ureteral stone. The access catheter was removed and was replaced by a dual-lumen catheter. A second guidewire was then positioned. We chose one of the wires as a working wire and the other as a safety wire. We passed a ureteral access sheath over the working wire into the mid ureter. We then passed the flexible ureteroscope up the ureter through the access sheath we were able to visualize the stone in the mid ureter. We chose a 365 holmium laser fiber to fracture the stone. We used a power setting of 200 and a rate of 8. The stone fragmented and the fragments went back up into the kidney. We ran the scope up into the kidney to grasp multiple stone fragments in a 0 tip stone basket. The stone fragments were removed and sent to pathology for chemical analysis. We then did a repeat retrograde pyelogram and again confirmed extravasation of contrast. We were then able to place a ureteral stent. We chose a 4.8 Ethiopian stent and placed it such that the proximal end was in the upper pole calyx and t he distal and was within the bladder. The positioning of the stent was confirmed both fluoroscopically and cystoscopically. The patient tolerated this procedure well. Since we were not convinced that we extracted all stone fragments, we will plan on a return to the operating room for stent removal, repeat ureteroscopy and extraction of any residual stone fragments. This planned procedure will occur in about 2 weeks to allow the ureter to heal.
[2021-09-18 17:36] LABS: Source: Right Ureter
== END 2021-09-16 13:20 | disposition home or self-care (01) ==
PROVIDERS: PCP Family Medicine; Visit Provider Urology
PROC: (CPT 52356; principal; 2021-09-16 08:30)
DX: N20.1 Calculus of ureter (principal); E78.5 Hyperlipidemia, unspecified
CPT/HCPCS: 52356; 74420; 82365; J0690; J1100; J1885; J2405; J2704; Q9967

== ENCOUNTER 2021-09-27 03:11 | Outpatient (CLI) | payer MEDICARE, SELFPAY ==
[2021-09-27 10:55] LABS: Source Nasal/Nares
[2021-09-27 17:09] LABS: COVID-19 PCR Negative (Negative)
== END 2021-09-27 03:12 | disposition home or self-care (01) ==
PROVIDERS: PCP Family Medicine; Visit Provider Urology
DX: Z20.822 Contact with and (suspected) exposure to COVID-19 (principal); Z01.818 Encounter for other preprocedural examination
CPT/HCPCS: 87635

== ENCOUNTER 2021-09-30 07:27 | Day surgery (SDC) | payer MEDICARE, SELFPAY ==
[2021-09-30] VITALS (7 sets, daily range): BP systolic 125–162; BP diastolic 59–88; PULSE 68–96; RESP 14–18; TEMP 36.4–36.7; O2SAT 97–98; BMI 23.1
--- NOTE | 2021-09-30 07:58 | ANES.PREOP_ITS ---
General Info Date of Service Date Performed: 09/30/21 Height: 5 ft 8 in Weight: 69 kg Body Mass Index (BMI): 23.1 Surgical Procedure: Operation Date: 09/30/21 09:10 Proposed Procedures Side Surgeon p Cystoscopy/Laser/Retrograde/Ureteroscopy Right Jensen George MD Meds Allergies and Home Medications Allergies Allergy/AdvReac Type Severity Reaction Status Date / Time No Known Allergies Allergy Verified 09/30/21 07:41 Home Medication Medication Instructions Recorded ibuprofen 600 mg PO PRN PRN 07/12/19 acetaminophen [Tylenol Extra 1,000 mg PO QID PRN 09/30/21 Strength] Current Visit Medications: Current Medications Generic Name Dose Route Start Last Admin Trade Name Freq PRN Reason Stop Dose Admin Ringer's Solution 1,000 mls @ 80 mls/hr 09/30/21 06:00 IV 10/27/21 23:59 INFUSION CAT[place]INA Cefazolin Sodium 2,000 mg/ 100 mls @ 200 mls/hr 09/30/21 06:00 Sodium Chloride IVPB 09/30/21 23:59 PREOP [place] IV Miscellaneous Supplies 1 each 09/30/21 06:00 Iv Access IV 10/27/21 23:59 DIRECTED [place] Sodium Chloride 0 ml 09/30/21 06:00 Normal Saline Flush 10 Ml Syr IV 10/27/21 23:59 PRN PRN Sodium Chloride 0 ml 09/30/21 06:00 Normal Saline 10 Ml Vial IJ 10/27/21 23:59 DIRECTED PRN Sterile Water 0 ml 09/30/21 06:00 Water,Injection,Sterile 10 Ml Vial IJ 10/27/21 23:59 DIRECTED PRN PFSH Active Problems Active Problems: Problem Status Onset Code Calculus of proximal right ureter N20.1 Left inguinal hernia K40.90 Fracture of left clavicle S42.002A Medical History Medical History (Updated 09/30/21 @ 07:44 by Birgit Szymanski) Calcium kidney stone Fracture of left clavicle Hx of fracture of rib Hyperlipidemia Left inguinal hernia 07/12/19 left inguinal hernia repair, Dr Yudy Yang, [facility] Surgical History Surgical History (Updated 09/30/21 @ 07:43 by Birgit Szymanski) H/O nasal septoplasty History of cystoscopy S/P left inguinal hernia repair 07/12/19 S/P right rotator cuff repair Tobacco Smoking/Tobacco Use Status: Never Second hand exposure: Yes Alcohol Alcohol Intake: current Alcohol intake frequency: 0-2 drinks per day Alcohol type: hard liquor Substance Use Substance use: Never Substance use type: does not use Details: alcohol: since august Vital Signs and Lab Results Vital Signs Most Recent Vital Signs in EMR: Most Recent Vital Signs Temp Pulse Resp BP Pulse Ox 36.4 C L 96 H 18 125/85 98 09/30/21 07:46 09/30/21 07:46 09/30/21 07:46 09/30/21 07:46 09/30/21 07:46 Lab Results Blood Type / Crossmatch: No Data to Display Complete Blood Count: White Blood Count 6.81 10^3/uL (4.4-10.8) 09/05/21 16:53 09/05/21 Red Blood Count 4.62 10^6/uL (4.36-5.78) 09/05/21 16:53 09/05/21 Hemoglobin 15.4 g/dL (13.5-17.5) 09/05/21 16:53 09/05/21 Hematocrit 46.2 % (40.0-50.0) 09/05/21 16:53 09/05/21 Platelet Count 154 10^3/uL (130-400) 09/05/21 16:53 09/05/21 Complete Metabolic Panel: Sodium Level 141 mmol/L (136-145) 09/05/21 16:53 09/05/21 Potassium Level 4.7 mmol/L (3.5-5.1) 09/05/21 16:53 09/05/21 Chloride Level 105 mmol/L (98-107) 09/05/21 16:53 09/05/21 Carbon Dioxide Level 31.6 mmol/L (21.0-32.0) 09/05/21 16:53 09/05/21 Blood Urea Nitrogen 27 mg/dL (7-18) H 09/05/21 16:53 09/05/21 Creatinine 1.3 mg/dL (0.70-1.30) 09/05/21 16:53 09/05/21 Estimated GFR/1.73 m2 54.73 (mL/min/1.73m2) 09/05/21 16:53 09/05/21 Calcium Level 9.7 mg/dL (8.5-10.1) 09/05/21 16:53 09/05/21 Albumin 3.6 g/dL (3.4-5.0) 09/05/21 16:53 09/05/21 Glucose Level 114 mg/dL (74-106) H 09/05/21 16:53 09/05/21 Liver Function Panel: Alanine Aminotransferase (ALT/SGPT) 27 U/L (16-63) 09/05/21 16:53 09/05/21 Aspartate Amino Transf (AST/SGOT) 17 U/L (15-37) 09/05/21 16:53 09/05/21 Coagulation Panel: No Data to Display Cardiac Panel: No Data to Display Arterial Blood Gas: No Data to Display Venous Blood Gas: No Data to Display Pancreas Panel: No Data to Display Thyroid Panel: No Data to Display Infectious Disease: Coronavirus (COVID-19)(PCR) Negative (Negative) 09/27/21 09:41 09/27/21 Coronavirus 2019 Source Nasal/Nares 09/27/21 09:41 09/27/21 Blood Cultures: No Data to Display Toxicology Panel: No Data to Display Anesthesia Assessment and Plan Anesthesia History Personal History: No History of Anesthesia Complications Family History: No Family History of Anesthesia Complications Exercise Tolerance Exercise Tolerance: Metabolic Equivalents>4 Pertinent Negatives Pertinent Negatives: No Symptoms of GERD Cardiac & Pulmonary Exam Cardiac Exam: Normal S1/S2 Heart Sounds Pulmonary Exam: Clear Bilateral Breath Sounds Implantable Cardiac Device Does patient have a Pacemaker or an ICD?: No Airway Exam Known Difficult Airway: No Mallampati Class: 2 Mouth Opening: Normal (> 3cm) Thyromental Distance: Greater than 3 cm Neck Range of Motion: Full ROM Neck Circumference: Normal Teeth Condition: Normal Dentition ASA Classification ASA Score: ASA 2 Emergency Case?: No NPO Status NPO Status: NPO Clears >2 hours, Solids >8 hours Anesthesia Plan Resuscitation Status: Full Code Anesthesia Technique: General Anesthesia Airway Planned: LMA Monitors Used: Standard Monitors
[2021-09-30] MEDS: Lactated Ringers 1,000 ML 80 ML IV (08:00)
--- NOTE | 2021-09-30 08:20 | W.PM.HP.N ---
Date of service: 09/30/21 Time of Service: 08:20 Assessment and Plan Assessment and plan (1) Calculus of proximal right ureter: Status: Acute Assessment and plan: He now presents for cystoscopy, removal of right ureteral stent , ureteroscopy with removal of any remaining ureteral/renal stones. History of Present Illness History of Present Illness Chief Complaint: Right ureteral stone Narrative: This is a 71 year old man who was seen for a right ureteral stone. He underwent ureteroscopy with holmium laser lithotripsy and stent placement. He presents for stent removal and repeat ureteroscopy to address any remaining stone fragments. He has had blood in the urine since his stent placement. He also has had an increase in his frequency especially at night. Review of Systems Narrative: No fevers or chills No vision change or dysphasia No diabetes or thyroid dysfunction No shortness of breath, cough or hemoptysis No chest pain or palpitations No nausea, vomiting, hepatitis, ulcers, jaundice No seizures, strokes or peripheral neuropathy No bleeding disorders or anemia No gout PFSH Medical History (Updated 09/30/21 @ 07:44 by Birgit Szymanski) Calcium kidney stone Fracture of left clavicle Hx of fracture of rib Hyperlipidemia Left inguinal hernia 07/12/19 left inguinal hernia repair, Dr Yudy Yang, [facility] Surgical History (Updated 09/30/21 @ 07:43 by Birgit Szymanksi) H/O nasal septoplasty History of cystoscopy S/P left inguinal hernia repair 07/12/19 S/P right rotator cuff repair Family History Other Cancer Social History Smoking/Tobacco Use Status: Never Second Hand Exposure: Yes Smoking risk assessment performed?: Yes Alcohol Intake: current Alcohol Intake frequency: 0-2 drinks per day Alcohol type: hard liquor Drug use: Never Substance use type: does not use Details: alcohol: since august Do you feel safe at home: Yes Do you feel safe in your relationship?: Yes Additional Social history: Owns repair shop Meds Allergies and Home Medications Allergies Allergy/AdvReac Type Severity Reaction Status Date / Time No Known Allergies Allergy Verified 09/30/21 07:41 Home Medications Medication Instructions Recorded Confirmed Type ibuprofen 600 mg PO PRN PRN 07/12/19 09/30/21 History acetaminophen [Tylenol Extra 1,000 mg PO QID PRN 09/30/21 09/30/21 History Strength] Exam Const General: cooperative and comfortable Neck Neck: supple Resp Effort & Inspection: normal respiratory effort Auscultation: clear to auscultation bilaterally Cardio Rate: regular rate Rhythm: regular rhythm GI Palpation: soft and no masses Neuro General: patient alert, patient awake and patient oriented x3 Results Last Vital Signs Temp 36.4 C L 09/30/21 07:46 Pulse 96 H 09/30/21 07:46 Resp 18 09/30/21 07:46 BP 125/85 09/30/21 07:46 Pulse Ox 98 09/30/21 07:46
--- NOTE | 2021-09-30 08:30 | DI.RAD_ITS ---
Exam(s) XR RETROGRADE IN OR EXAM: XR RETROGRADE IN OR CLINICAL HISTORY: Calculus of proximal right ureter TECHNIQUE: 2D and realtime digital imaging was performed. CONTRAST MATERIAL: Refer to procedure report. COMPARISON: No exams were available for comparison FINDINGS: Fluoroscopy was provided for Dr. George during the performance of a retrograde evaluation of the irwin l collecting system. Please refer to the procedure report for complete details. Ka,r=14.17 mGy IMPRESSION: RADIATION DOSE DELIVERED:
[2021-09-30] MEDS: ceFAZolin 2,000 MG in Normal Saline 100 ML 200 MG IVPB (09:03)
[2021-09-30] MEDS: Lidocaine 2% Jelly 6 ML SYR (09:19)
[2021-09-30] MEDS: Omnipaque 300 MG/ML 50 ML BTL (09:25)
--- NOTE | 2021-09-30 10:05 | W.PM.DSUDISC ---
Discharge Plan Disposition Patient Disposition: HOME Condition: Stable Discharge Details Reason For Visit: right ureteral stone Attending Provider: Jensen George Primary Care Provider: Fabiana Mehta Home Meds and New Rx's Prescriptions: New hydrocodone-acetaminophen 5-325 mg tablet 1 - 2 tab PO Q6H PRN (Reason: pain) Qty: 20 RF: 0 No Action acetaminophen [Tylenol Extra Strength] 500 mg Capsule 1,000 mg PO QID PRNRF: 0 ibuprofen 200 mg Tablet 600 mg PO PRN PRNRF: 0 Discharge Instructions Additional Instructions: no need to strain urine followup 1 week for stent removal - tell my office pt has string on stent followup appt 4 to 6 weeks for renal US Activity:: Activity as Tolerated Shower/Bathe:: 24 hours Diet:: As Tolerated Discharge Orders Discharge Orders: Discharge Order (Routine); Ordered 09/30/21 Ordered By: Jensen George DS: Diagnosis Discharge Diagnosis (1) Calculus of proximal right ureter: Status: Acute
--- NOTE | 2021-09-30 10:36 | W.PM.OP ---
Date of service: 09/30/21 Time of Service: 10:37 Operative Note Operative Note DATE OF PROCEDURE: 09/30/21 PRE-OP DIAGNOSIS: right ureteral stone POST-OP DIAGNOSIS: same PROCEDURE: cystoscopy, remove right ureteral stent, right retrograde pyelogram, right ureteroscopy, holmium laser lithotripsy of stone, stone fragment extraction, insert right ureteral stent SURGEON: Jensen George ANESTHESIA TYPE: General LMA/ETT Refer to Anesthesia Record ESTIMATED BLOOD LOSS: 25 PATHOLOGY: other (stone fragments for chemical analysis) COMPLICATIONS: None Patient was transported to: PACU Patient's condition: stable Implants: 4.8 [place] by 22 to 30 cm right ureteral stent Indications: This is a 71-year-old gentleman who initially presented with a right proximal ureteral stone. He was treated with ureteroscopy and holmium laser lithotripsy. I was able to extract a few fragments, but visibility became compromised. I placed a ureteral stent and he returns now for repeat ureteroscopy with extraction of any residual stone fragments. Findings: residual right ureteral stone embedded right ureteral wall Procedure Description: The patient was given preoperative IV antibiotics. He was brought to the operating room on 09/30/2021. After successful induction of general anesthesia, he was placed in the dorsal lithotomy position. His genitalia was prepped and draped. Percent Xylocaine jelly was instilled into the urethra to act as a local anesthetic. A 22 [place] rigid cystoscope was passed through the urethra into the bladder. The urethra and bladder were inspected with a 30 degree lens. The pendulous, bulbar and membranous urethra was all appeared normal with no strictures. The prostatic urethra showed some lateral lobe enlargement. The neck was entered and the bladder mucosa was inspected. No stones were seen within the bladder. A stent could be seen protruding from an edematous right ureteral orifice. The stent was grasped with alligator forceps and brought out to the level of the urethral meatus. A Glidewire was then advanced through the lumen of the stent and the stent was removed leaving the wire in place. A dual-lumen catheter was advanced over the wire and a retrograde pyelogram was obtained by injecting Omnipaque through the dual-lumen catheter port. This allowed us to outline the renal pelvis and collecting system. A second guidewire was then positioned and the dual-lumen catheter was removed. We chose one of the wires as a working wire and the other as a safety wire. We passed a ureteral access sheath over the working wire. The flexible ureteroscope was then advanced through the ureteral access sheath. In the proximal ureter, there appeared to be some embedded stone fragments at the previous location of the stone. I was unable to grasp the stones directly, so used a 272 ?m holmium laser fiber to treat the stones in situ. We used a power setting of 800 and a rate of 8. The stone fragments fractured and became dislodged. I was able to grasp multiple stone fragments in a 0 tip stone basket. The fragments were removed and sent to pathology for chemical analysis. The scope was reintroduced. No residual stone fragments were identified, but there was edema in the ureter at the site of the impacted stone. I elected to replace the ureteral stent. I chose a 4.8 [place] variable length stent and advanced it over the safety wire. The proximal end of the stent was curled in the renal pelvis and the distal and was curled within the bladder. We left the safety string in place brought the string through the urethra. We taped the string on the dorsum of the penis. We will plan on removing the stent in about 1 week.
--- NOTE | 2021-09-30 11:05 | W.ANESPOSTOP ---
Postoperative Evaluation Date, Time and Location Date Performed: 09/30/21 Time Performed: 11:05 Patient Location: PACU Vital Signs Most Recent Imported Vital Signs: Most Recent Vital Signs Temp Pulse Resp BP Pulse Ox 36.7 C 72 17 162/70 H 97 09/30/21 10:38 09/30/21 10:38 09/30/21 10:38 09/30/21 10:38 09/30/21 10:38 Pain Score Most Recent Pain Score: Most Recent Pain Score Pain Level 0 09/30/21 10:38 Assessment Mental Status: Awake (Alert & Oriented to Patient Baseline) Airway and Respiratory Function: Patent airway with normal (patient baseline) respiratory exam Cardiovascular Function: Hemodynamically Stable Hydration Status: Adequately Hydrated Nausea & Vomiting: No Nausea or Vomiting Pain: Pain is tolerable per patient Peripheral Nerve Block: Patient did not receive a nerve block
[2021-10-08 13:40] LABS: Source: Right Ureter
== END 2021-09-30 12:12 | disposition home or self-care (01) ==
PROVIDERS: PCP Family Medicine; Visit Provider Urology
PROC: (CPT 52356; principal; 2021-09-30 09:00)
DX: N20.1 Calculus of ureter (principal)
CPT/HCPCS: 52356; 74420; 82365; J0690; J1100; J1885; J2405; J2704; Q9967

== ENCOUNTER → 2021-10-07 07:46 | Outpatient (BNVA) | payer MEDICARE, SELFPAY | PROVIDERS: PCP Family Medicine; Referring Provider Family Medicine; Visit Provider Nurse Practitioner Gerontology | DX: N20.1 Calculus of ureter (principal) | CPT/HCPCS: 99213 ==

== ENCOUNTER 2021-11-04 01:34 | Outpatient (CLI) | payer MEDICARE, SELFPAY ==
--- NOTE | 2021-11-04 07:30 | DI.US_ITS ---
Exam(s) US RENAL EXAM: US RENAL CLINICAL HISTORY: r/o hydronephrosis after ureteroscopy,n20.1,calculus proximal rt ureter TECHNIQUE: Ultrasound of both kidneys performed using standard protocol. COMPARISON: Prior CT scan 09/05/2021 was reviewed. This patient has had interval urologic procedure FINDINGS: KIDNEYS: There is mild right-sided hydronephrosis and hydroureter. We were able to follow the dilated right u reter down to the culprit calculus which is at the mid right ureter and this calculus measures approx imately 6 x 4 millimeters. This right ureteral calculus was also evident on the CT scan of . Above this level there is a cyst seen goal small hyperechoic focus in the right kidney which may correspond to 1 of the other calculi seen in the right kidney on the prior CT scan 09/05/2021. In the opposite-left kidney there is no hydronephrosis but there are a few shadowing calculi, the lar gest measuring 6 millimeters, also evident on previous CT scan. Left ureter is not dilated. URINARY BLADDER: Prevoid volume is 132 cc Postvoid volume is 54 cc There are few calculi noted in the urinary bladder. Both ureterovesical jets were identified. No obvious mass in the urinary bladder. Prostate gland is slightly prominent. IMPRESSION: 1. Main finding here is right-sided hydronephrosis and hydroureter with the culprit 6 millimeter x 4 millimeter calculus in the mid right ureter. I note that this was also evident on recent CT scan pe rformed 09/05/2021. 2. Calculi also again noted in both kidneys. 3. Small calculi are also seen in the urinary bladder. Both ureterovesical jets were identified. This implies that the calculus in the mid right ureter is not completely obstructing. DATA REPOSITORY:
== END 2021-11-04 01:54 ==
PROVIDERS: PCP Family Medicine; Visit Provider Urology
DX: N20.1 Calculus of ureter (principal); N13.4 Hydroureter; N13.0 Hydronephrosis with ureteropelvic junction obstruction; N21.0 Calculus in bladder
CPT/HCPCS: 76770

== ENCOUNTER → 2021-11-08 13:57 | Outpatient (BNVA) | payer MEDICARE, SELFPAY | PROVIDERS: PCP Family Medicine; Referring Provider Family Medicine; Visit Provider Urology | DX: Z48.816 Encounter for surgical aftercare following surgery on the genitourinary system (principal); N20.1 Calculus of ureter | CPT/HCPCS: 99213 ==

== ENCOUNTER 2022-05-06 01:32 | Outpatient (CLI) | payer MEDICARE, SELFPAY ==
--- NOTE | 2022-05-06 06:45 | DI.US_ITS ---
Exam(s) US RENAL EXAM: US RENAL CLINICAL HISTORY: monitor known bilat kidney stones,n20.0 TECHNIQUE: Ultrasound of both kidneys performed using standard protocol. COMPARISON: US US RENAL from 11/04/2021 FINDINGS: RIGHT KIDNEY: Measures 9.7 cm in length. No cysts evident. Normal cortical thickness and corticomedullary different iation .No solid masses however, there is mild right-sided hydronephrosis and the visualized upper ri ght ureter is also dilated and able to be followed down to what appears to be a 6 millimeter probable calculus in the upper-mid right ureter. Right ureterovesical jet was not identified, further eviden ce that there is an obstructing calculus on the right side. LEFT KIDNEY: Measures 11.5 cm in length. No cysts evident. Normal cortical thickness and corticomedullary differe ntiaion. No solids masses. No intrarenal calculi nor hydonephrosis. URINARY BLADDER: Prevoid volume is 454 cc Postvoid volume is almost the same cc No evidence of obvious bladder wall mass. Ureterovesical jets: Left was identified. Right ureterovesical jet was not seen, most probably relat ed to the obstruction the right ureter. IMPRESSION: 1. Right-sided hydronephrosis due to an obstructing calculus at the level of the mid-upper right ure ter. 2. No significant findings in the opposite-left kidney. DATA REPOSITORY:
== END 2022-05-06 01:52 ==
LOC: DI 01:33
PROVIDERS: PCP Family Medicine; Visit Provider Urology
DX: N20.1 Calculus of ureter (principal)
CPT/HCPCS: 76770; 99213

== ENCOUNTER 2024-10-13 22:32 | Outpatient (REF) | payer MEDICARE, SELFPAY ==
[2024-10-13 22:21] LABS: ALT 21 U/L (16-63); AST 13 U/L (15-37); Albumin 3.4 g/dL (3.4-5.0); Alkaline Phosphatase 84 U/L (46-116); Anion Gap 9.8 mmol/L (3-11); BUN 31 mg/dL (7-18); Bilirubin, Total 0.31 mg/dL (0.2-1.0); CO2 25.2 mmol/L (21.0-32.0); CREATININE 1.1 mg/dL (0.70-1.30); Calcium 9.4 mg/dL (8.5-10.1); Chloride 107 mmol/L (98-107); Estimated GFR 71.32 (mL/min/1.73m2); Glucose 108 mg/dL (74-106); Potassium 4.4 mmol/L (3.5-5.1); Sodium 142 mmol/L (136-145); Total Protein 6.8 g/dL (6.4-8.2)
[2024-10-13 23:03] LABS: Cholesterol 249 mg/dL (<200)
[2024-10-13 23:04] LABS: Calculated LDL 138 mg/dL (<100); HDL Cholesterol 63 mg/dL (40-60); Triglyceride 244 mg/dL (<150)
[2024-10-14 18:13] LABS: PSA, Screening 0.8 ng/mL (<=6.5)
== END 2024-10-13 22:33 | disposition home or self-care (01) ==
LOC: NCHCN 22:32
PROVIDERS: PCP Family Medicine; Visit Provider Family Medicine
DX: Z12.5 Encounter for screening for malignant neoplasm of prostate (principal); E78.5 Hyperlipidemia, unspecified
CPT/HCPCS: 80053; 80061; 84153

== ENCOUNTER 2025-03-01 13:13 | Emergency (ER) | payer MEDICARE, SELFPAY ==
[2025-03-01 13:42] VITALS: BP 159/89; PULSE 66; RESP 16; TEMP 36.8; O2SAT 98
--- NOTE | 2025-03-01 14:05 | ED.GENADUL_ITS ---
Discharge Plan Disposition Patient Disposition: Home Condition: Stable Discharge Details Clinical Impression: Lumbar back sprain Primary Care Provider: Fabiana Mehta ED Provider: Ryne Zapata Home Meds and New Rx's Prescriptions: New cyclobenzaprine 10 mg tablet 10 mg PO TID PRNQty: 30 0RF Continued acetaminophen 500 mg Capsule 1,000 mg PO QID PRN ibuprofen 200 mg Tablet 600 mg PO PRN PRN Discharge Instructions Instructions: Back Muscle Strain, Cyclobenzaprine Additional Instructions: You were seen in the emergency department for your lumbar back pain, please continue taking Tylenol and ibuprofen, it is best to take Tylenol every 6-8 hours and take ibuprofen 4 times per day chcf between Tylenol dosings, apply lidocaine patch to the area for aid with sleep, use the prescribed cyclobenzaprine which is a muscle relaxer to help with pain control, apply heat and ice to the area, follow-up with the physical therapy referral I have sent you. Should you have any numbness to your genitals or urinary retention or bowel abnormalities please return for possible imaging at that time. Stand Alone Forms: Physical Therapy Referral Referrals: Fabiana Mehta [Primary Care Provider] - Discharge Data Discharge Date/Time-TO BE ENTERED AT DEPARTURE: 03/01/25 14:38 HPI General Date/Time Provider Initiated Documentation: 03/01/25 13:47 . HPI Narrative: 74 year-old male presents to ED today by POV/ambulating with a chief complaint of low back pain with onset from benign ADLs, worst today. Quality described as low parasacral back pain, no radiation to midline back tenderness, trauma, urinary retention, bowel incontinence, fever, saddle anesthesia. Severity is described as 9/10. Palliating factors include took ibuprofen this morning with mild relief. Provoking factors include nothing specific. Patient not anticoagulated. Related Data Home Medications ?Medication ?Instructions ?Recorded ?Confirmed ibuprofen 200 mg tablet 600 mg PO PRN PRN 07/12/19 03/01/25 acetaminophen 500 mg capsule 1,000 mg PO QID PRN 09/30/21 03/01/25 cyclobenzaprine 10 mg tablet 10 mg PO TID PRN #30 tabs 03/01/25 Previous Rx's ?Medication ?Instructions ?Recorded cyclobenzaprine 10 mg tablet 10 mg PO TID PRN #30 tabs 03/01/25 Allergies Allergy/AdvReac Type Severity Reaction Status Date / Time No Known Allergies Allergy Verified 03/01/25 13:47 General Stated Complaint: Nk/Back Pain KARISHMA: 4 Review of Systems All systems reviewed & are unremarkable except as noted in HPI and below Exam Narrative Exam Narrative: GENERAL APPEARANCE: Well-nourished, non-toxic, awake and alert, atraumatic, no acute distress. SKIN: Warm, pink, dry, intact, without rashes/lesions/ulcerations. HEAD: Normocephalic, atraumatic, normal hair distribution for gender/age. EYES: Normal conjunctiva, no exudates on lids/lashes. ENT: Nares patent, no circumoral cyanosis, no facial swelling NECK: Supple, trachea midline, painless cervical ROM. LUNGS/CHEST: Non-labored respirations, normal A/P diameter, symmetrical expansion, no chest wall deformity HEART (CV/PV): No peripheral edema, no JVD. ABDOMEN: Soft, non-distended, no guarding. MSK: Normal ROM, no swelling/deformity to bilateral UEs or LEs, moving all extremities without weakness, no cyanosis, spine midline without tenderness, normal curvature, no midline vertebral tenderness/crepitus/step-offs, right SI joint tenderness, no CVA tenderness to percussion bilaterally NEURO: Mental Status AAOx4 - alert to person, place, time, events No facial droop, no forehead involvement. Motor: No focal weakness - strength 5/5 in bilateral UEs and LEs, proximal and distal, symmetric. Sensory: sensation intact to light touch globally. Gait normal: patient ambulated without ataxia into ED room. PSYCH: euthymic, cooperative, pleasant, appropriate speech Course Vital Signs Vital signs: Vital Signs Temperature 36.8 C 03/01/25 13:42 Pulse 66 03/01/25 13:42 Respiratory Rate 16 03/01/25 13:42 Blood Pressure 159/89 H 03/01/25 13:42 Pulse Oximetry 98 03/01/25 13:42 Temperature 36.8 C 03/01/25 13:42 Pulse 66 03/01/25 13:42 Respiratory Rate 16 03/01/25 13:42 Blood Pressure 159/89 H 03/01/25 13:42 Pulse Oximetry 98 03/01/25 13:42 Oxygen Delivery Method Room Air 03/01/25 13:42 Oxygen Flow Rate 0 03/01/25 13:42 Pain Level 9 03/01/25 13:42 Medical Decision Making This dictation utilizes [id number] dictation software and may contain unedited grammatical errors. 74 year-old male presents to ED today by POV/ambulating with a chief complaint of low back pain with onset from benign ADLs, worst today. Quality described as low parasacral back pain, no radiation to midline back tenderness, trauma, urinary retention, bowel incontinence, fever, saddle anesthesia. Severity is described as 9/10. Palliating factors include took ibuprofen this morning with mild relief. Provoking factors include nothing specific. Patients' medical history: History of renal stones. Family and social history: Noncontributory. Pertinent exam findings / vital signs include left SI joint tenderness worse on the right, no saddle anesthesia, no CVA tenderness bilaterally to percussion, neurovascular intact, strength 5/5 in lower extremities. Differential / pathologies of concern include lumbar back sprain, not cauda eq uina, unlikely fracture. Diagnostic studies of: - None. Interventions of: - IM ketorolac, 650 mg p.o. Tylenol, Lidoderm patch, Rx for cyclobenzaprine. ED Course/Assessment/Plan: 74-year-old male is right paraspinal lumbar back pain from activities of daily life, no evidence for cauda equina, no trauma, neurovascularly intact in bilateral lower extremities, recommend therapeutic dosing of Tylenol and ibuprofen, Lidoderm patch, referral to physical therapy and Rx for cyclobenzaprine, apply heat and ice to the area, perform gentle stretching exercises, strict return for any urinary or bowel changes. Findings not consistent with cauda equina, fracture or trauma, renal colic. Disposition of Lumbar Back Sprain. Patient verbalized understanding of the plan and return to ED criteria and engaged in shared decision making. Medical Records Medical records reviewed: Yes I reviewed the patient's medical records. Quality:SDOH Health Related Social Needs: Health related social needs food insecurity (Z59.41) [facility] All Active Problems (Updated 03/01/25 @ 14:10 by KIANA Llanos) Lumbar back sprain (Acute) Calculus of proximal right ureter (Acute) Left inguinal hernia (Acute) 07/12/19 left inguinal hernia repair, Dr Yudy Yang, [facility] Medical History (Updated 03/01/25 @ 14:10 by KIANA Llanos) Lesion of skin of face Loose stools Elevated blood pressure reading in office without diagnosis of hypertension Hx of fracture of rib Calcium kidney stone Hyperlipidemia Surgical History (Updated 10/17/24 @ 15:02 by Melany James) History of cystoscopy S/P left inguinal hernia repair 07/12/19 S/P right rotator cuff repair H/O nasal septoplasty Family History (Updated 10/17/24 @ 14:45 by Melany James) Father Malignant neoplasm of urinary bladder Paternal Grandfather Cancer Social History Smoking/Tobacco Use Status: Never Second Hand Exposure: Yes Smoking risk assessment performed?: Yes Alcohol Intake: current Alcohol Intake frequency: 0-2 drinks per day Alcohol type: hard liquor Drug use: Never Substance use type: does not use Details: alcohol: since august Do you feel safe at home: Yes Do you feel safe in your relationship?: Yes Additional Social history: Owns repair shop
[2025-03-01] MEDS: Ketorolac 30 MG/ML VIAL IM (14:24)
[2025-03-01] MEDS: Lidocaine 5% Patch 1 PATCH TP (14:24)
[2025-03-01] MEDS: Acetaminophen 325 MG TAB 650 MG PO (14:24)
== END 2025-03-01 14:38 | disposition home or self-care (01) ==
LOC: ER 14:22
PROVIDERS: Emergency Provider Physician Assistant; PCP Family Medicine
DX: S33.5XXA Sprain of ligaments of lumbar spine, initial encounter (principal); X58.XXXA Exposure to other specified factors, initial encounter; Z59.41 Food insecurity
CPT/HCPCS: 96372; 99284; 99283; J1885

== ENCOUNTER → 2025-06-13 11:22 | Outpatient (BNVA) | payer MEDICARE, SELFPAY | PROVIDERS: PCP Family Medicine; Referring Provider Family Medicine; Visit Provider Urology | DX: N20.1 Calculus of ureter (principal) | CPT/HCPCS: 76775 ==

== ENCOUNTER 2025-08-07 16:27 | Outpatient (REF) | payer MEDICARE, SELFPAY ==
[2025-08-07 16:32] LABS: Glucose Negative (Negative)
[2025-08-07 18:00] LABS: ALT 23 U/L (16-63); AST 17 U/L (15-37); Albumin 3.7 g/dL (3.4-5.0); Alkaline Phosphatase 67 U/L (46-116); Anion Gap 5.8 mmol/L (3-11); BUN 20 mg/dL (7-18); Bilirubin, Total 0.8 mg/dL (0.2-1.0); CO2 31.2 mmol/L (21.0-32.0); Calcium 9.3 mg/dL (8.5-10.1); Calculated LDL 178 mg/dL (<100); Chloride 103 mmol/L (98-107); Cholesterol 269 mg/dL (<200); Estimated GFR 79.47 (mL/min/1.73m2); Glucose 90 mg/dL (74-106); HDL Cholesterol 73 mg/dL (>or=40); Potassium 5.0 mmol/L (3.5-5.1); Sodium 140 mmol/L (136-145); Total Protein 7.4 g/dL (6.4-8.2); Triglyceride 94 mg/dL (<150)
[2025-08-07 23:00] LABS: PSA, Screening 0.8 ng/mL (<=6.5)
== END 2025-08-07 16:28 | disposition home or self-care (01) ==
LOC: NCHCN 16:27
PROVIDERS: PCP Family Medicine; Visit Provider Family Medicine
DX: I10 Essential (primary) hypertension (principal)
CPT/HCPCS: 80053; 80061; 84153; 81003

== ENCOUNTER → 2025-10-12 11:21 | Outpatient (BNVA) | payer MEDICARE, SELFPAY | PROVIDERS: PCP Family Medicine; Referring Provider Family Medicine; Visit Provider Physical Therapy Assistant | DX: Z12.11 Encounter for screening for malignant neoplasm of colon (principal) ==

== ENCOUNTER 2025-11-03 07:30 | Day surgery (SDC) | payer MEDICARE, SELFPAY ==
--- NOTE | 2025-11-02 21:39 | W.PM.DSUDISC ---
Date of service: 11/03/25 Discharge Plan Disposition Patient Disposition: Home Condition: Good Discharge Details Reason For Visit: Screening colonoscopy Attending Provider: Rl Curry Primary Care Provider: Fabiana Mehta Home Meds and New Rx's Prescriptions: Continued olmesartan 20 mg tablet 20 mg PO DAILY acetaminophen 500 mg Capsule 1,000 mg PO QID PRN ibuprofen 200 mg Tablet 600 mg PO PRN PRN Discontinued bisacodyl 5 mg tablet,delayed release (DR/EC) 5 mg PO ONCE Qty: 4 0RF Rx Instructions: Per Colonoscopy bowel prep instructions polyethylene glycol 3350 17 gram/dose powder 238 g PO ONCE Qty: 238 0RF Rx Instructions: For Colonoscopy bowel prep, as directed by office Discharge Instructions Instructions: Colon polyps, Diverticulosis Additional Instructions: Jeffrey, it was good to meet you today, and hope you feel well after the colonoscopy. Things went very smoothly. I did find, and remove 1 polyp today. The polyp was small, and certainly nothing to worry about. I will send it to the pathologist for them to review since the nature of polyps and sometimes influences the timing of future colonoscopies. Incidentally, you also have some diverticulosis. These are little weak spots in the muscular layer of the colon wall that pocket or pouch outwards a bit. I will attach some basic information here about diverticulosis as well as colon and rectal polyps. The results from the polyp analysis will take about a week or 2 to get back, but once my office has that information, we will be in touch with recommendations for future colonoscopies. If you need anything in the meantime, please do not hesitate to ask. 1. If tolerated, consume a soft, low fiber diet for 1-2 days. [address] Do not drive, drink alcohol, operate machinery, make critical decisions, or do activities that require coordination or balance for 24 hours. 3. Because air was put into your colon during the procedure, expelling air from your rectum (passing gas or farting) is normal. 4. You may not have a bowel movement for 1-3 days because of the colonoscopy prep. This is normal. 5. Go directly to the emergency room if you notice any of the following: Develop chills (warm to touch), or if you have a thermometer and your temperature is above 101 Difficulty breathing or difficultly swallowing Persistent vomiting Severe abdominal pain, other than gas cramps Severe chest pain Black, tarry stools Any bleeding ? exceeding one tablespoon 6. Call your physician if the site where your intravenous was started becomes red, swollen, painful, and warm to touch. 7. Your physician has reviewed your pre-procedure medications. Please continue to take those medications as previously ordered. You will be given specific information/education regarding any changes to your medications before leaving. Stand Alone Forms: Anesthesia Discharge Inst., Brandon Fajardo (DSU), Portal Information Activity:: Activity as Tolerated Diet:: As Tolerated Discharge Orders Discharge Orders: Discharge Order (Routine); Ordered 11/02/25 Ordered By: Rl Curry DS: Diagnosis Discharge Diagnosis (1) Encounter for screening colonoscopy: Status: Acute Asessment and Plan: Follow-up on polypectomy results
--- NOTE | 2025-11-02 21:40 | COLE_ITS ---
Date of service: 11/03/25 Time of Service: 09:49 Colonoscopy Report Date of procedure: 11/03/25 Pre-op diagnosis general: Screening colonoscopy Post-op diagnosis procedure note: other (Colon polyp, diverticulosis) Procedure: Colonoscopy with polypectomy Surgeon: Rl Curry Anesthesia Type: General:No Airway Estimated blood loss (mL): 5 Pathology: other (0.25 cm flat polyp at 15 cm) Complications: None Disposition: same day Indications: Jeffrey is a 75-year-old man who needs a screening colonoscopy Prep: Miralax/Dulcolax Procedure Start Time: :22 Procedure End Time: :41 Retraction Time: 12 Findings: Sigmoid diverticulosis, 0.25 cm flat polyp at 15 cm Procedure Description: After the induction of anesthesia, and with the patient in left lateral decubitus position, I began by performing an external anorectal exam.? Perineum and skin were normal, as was the anal verge.? There was no evidence of external hemorrhoids.? Next, I performed a digital rectal exam.? I did not appreciate any abnormal findings.? Next, I advanced a colonoscope into the rectal vault.? I performed retroflexion.? This appeared normal.? Using insufflation, I then advanced the colonoscope beyond the rectal folds and into the sigmoid colon before advancing towards the cecum.? There is sigmoid diverticulosis the scope was noted to be in the cecum by identification of the ileocecal valve and appendiceal orifice.? I then began withdrawing the colonoscope using repeated irrigation as necessary for full evaluation of the colonic mucosa. ?Once the scope was withdrawn to the level of the rectum, great care was taken to examine portions of the rectal folds. Around 15 cm past the anal verge, right at the top portion of the rectal vault was a 0.25 cm flat polyp. This was removed with cold forceps with minimal bleeding.? Finally, the scope was withdrawn and the patient was brought to the same-day surgery recovery unit as the anesthetic wore off. ?The findings and instructions were shared with the patient prior to discharge. [place] Bowel Prep [place] Bowel Prep Right Colon: 3 Left Colon: 3 Transverse Colon: 3 Total Score: 9
[2025-11-03 07:56] VITALS: BP 107/71; PULSE 73; RESP 18; TEMP 36.3; O2SAT 97
[2025-11-03] MEDS: Lactated Ringers 1,000 ML 80 ML IV (08:17)
--- NOTE | 2025-11-03 09:10 | W.ANESPRE ---
General Info Date of Service Date Performed: 11/03/25 Height: 5 ft 8 in Weight: 70.7 kg Body Mass Index (BMI): 23.7 Surgical Procedure: Operation Date: 11/03/25 09:05 Proposed Procedure Side Surgeon p Colonoscopy Rl Curry MD Actual Procedure Side Surgeon p Colonoscopy Not Applicable Rl Curry MD Pre-Op Diagnosis Post-Op Diagnosis Screening colonoscopy Meds Allergies and Home Medications Allergies Allergy/AdvReac Type Severity Reaction Status Date / Time No Known Allergies Allergy Verified 11/03/25 07:54 Home Medication ?Medication ?Instructions ?Recorded ibuprofen 200 mg tablet 600 mg PO PRN PRN 07/12/19 acetaminophen 500 mg capsule 1,000 mg PO QID PRN 09/30/21 olmesartan 20 mg tablet 20 mg PO DAILY 10/12/25 Current Visit Medications: Current Medications Generic Name Dose Route Start Last Admin Trade Name Freq PRN Reason Stop Dose Admin Ringer's Solution 1,000 mls @ 80 mls/hr 11/03/25 06:00 11/03/25 08:17 IV 11/03/25 23:59 80 mls/hr INFUSION CATALINA Administration Sodium Biphosphate/Sodium Phosphate 133 ml 11/03/25 06:00 Na Phosphate Enema-Adult 133 Ml Btl [place] 11/03/25 23:59 DIRECTED PRN Sodium Chloride 0 ml 11/03/25 06:00 Normal Saline Flush 10 Ml Syr IV 11/03/25 23:59 PRN PRN Sodium Chloride 0 ml 11/03/25 06:00 Normal Saline 10 Ml Vial IJ 11/03/25 23:59 DIRECTED PRN Sterile Water 0 ml 11/03/25 06:00 Water,Injection,Sterile 10 Ml Vial IJ 11/03/25 23:59 DIRECTED PRN PFSH Active Problems Active Problems: Problem Status Onset Code Encounter for screening colonoscopy Acute Z12.11 Calculus of proximal right ureter Acute N20.1 Fracture of left clavicle Resolved S42.002A Medical History Medical History Chronic diarrhea Left inguinal hernia 07/12/19 left inguinal hernia repair, Dr Yudy Yang, [facility] Lesion of skin of face Loose stools Elevated blood pressure reading in office without diagnosis of hypertension Hx of fracture of rib Calcium kidney stone Hyperlipidemia Surgical History Surgical History History of cystoscopy S/P left inguinal hernia repair 07/12/19 S/P right rotator cuff repair H/O nasal septoplasty Tobacco Smoking/Tobacco Use Status: Never Second hand exposure: Yes Alcohol Alcohol Intake: current Alcohol intake frequency: 0-2 drinks per day Alcohol type: hard liquor Substance Use Substance use: Never Substance use type: does not use Details: alcohol: since August Vital Signs and Lab Results Vital Signs Most Recent Vital Signs in EMR: Most Recent Vital Signs Temp Pulse Resp BP Pulse Ox 36.3 C L 73 18 107/71 97 11/03/25 07:56 11/03/25 07:56 11/03/25 07:56 11/03/25 07:56 11/03/25 07:56 Anesthesia Assessment and Plan Anesthesia History Personal History: No History of Anesthesia Complications Family History: No Family History of Anesthesia Complications Exercise Tolerance Exercise Tolerance: Metabolic Equivalents>4 Pertinent Negatives Pertinent Negatives: No Major Cardiovascular Symptoms or Complaints and No Major Pulmonary Symptoms or Complaints Cardiac & Pulmonary Exam Cardiac Exam: Normal S1/S2 Heart Sounds Pulmonary Exam: Clear Bilateral Breath Sounds Implantable Cardiac Device Does patient have a Pacemaker or an ICD?: No Airway Exam Known Difficult Airway: No Mallampati Class: 2 Mouth Opening: Normal (> 3cm) Thyromental Distance: Greater than 3 cm Neck Range of Motion: Full ROM Neck Circumference: Normal Teeth Condition: Normal Dentition ASA Classification ASA Score: ASA 2 Emergency Case?: No NPO Status NPO Status: NPO Clears >2 hours, Solids >8 hours Anesthesia Plan Resuscitation Status: Full Code Anesthesia Technique: General Anesthesia Airway Planned: Natural Airway Monitors Used: Standard Monitors
[2025-11-03 09:11] VITALS: BMI 23.7
--- NOTE | 2025-11-03 09:40 | BOWEL_PTH ---
PATIENT: Alfie Alonso LOC: [facility] U#:[id number] AGE/SX: 75/M ROOM: RE11/03/[address]: Rl Curry MD : 1950 BED: DIS: 11/03/2025 SPEC #: [id number] RECD: 11/03/25 12:32 STATUS: NELL REQ #: [id number] PAUL: 11/03/25 09:[address]: Rl Curry DEPT: Surgical Specimen RECD BY: Lynn Antonio ENTERED: 11/03/25 12:33 SP TYPE: Bowel OTHR DR: Fabiana Mehta Tissues: 1 - BIOPSY BOWEL Procedures: GROSS AND MICRO LEVEL 4 Comments: [id number]
[2025-11-03 09:47] VITALS: BP 112/66; PULSE 71; RESP 16; TEMP 36.4; O2SAT 96
--- NOTE | 2025-11-03 09:53 | W.ANESPOSTOP ---
Postoperative Evaluation Date, Time and Location Date Performed: 11/03/25 Time Performed: 09:48 Patient Location: Day Surgery Unit Vital Signs Most Recent Imported Vital Signs: Most Recent Vital Signs Temp Pulse Resp BP Pulse Ox 36.4 C L 71 16 112/66 96 11/03/25 09:47 11/03/25 09:47 11/03/25 09:47 11/03/25 09:47 11/03/25 09:47 Pain Score Most Recent Pain Score: Most Recent Pain Score Pain Level 0 11/03/25 07:56 Assessment Mental Status: Awake (Alert & Oriented to Patient Baseline) Airway and Respiratory Function: Patent airway with normal (patient baseline) respiratory exam Cardiovascular Function: Hemodynamically Stable Hydration Status: Adequately Hydrated Nausea & Vomiting: No Nausea or Vomiting Pain: Pt. Denies Any Pain Peripheral Nerve Block: Patient did not receive a nerve block
[2025-11-03 10:16] VITALS: BP 134/81; PULSE 38; RESP 16; TEMP 36.4; O2SAT 98
== END 2025-11-03 10:32 | disposition home or self-care (01) ==
LOC: SUR 07:31
PROVIDERS: PCP Family Medicine; Visit Provider Surgery
PROC: 0DJD8ZZ Inspection of Lower Intestinal Tract, Via Natural or Artificial Opening Endoscopic (ICD-10-PCS; CPT 45378; principal; 2025-11-03 09:00)
DX: Z12.11 Encounter for screening for malignant neoplasm of colon (principal); K63.5 Polyp of colon; K57.30 Diverticulosis of large intestine without perforation or abscess without bleeding
CPT/HCPCS: 45380; 88305; J2003; J2704

== ENCOUNTER 2025-11-07 12:11 | Outpatient (REF) | payer MEDICARE, SELFPAY ==
[2025-11-07 15:14] LABS: Anion Gap 7.6 mmol/L (3-11); BUN 17 mg/dL (9-23); CO2 26.4 mmol/L (20.0-31.0); Calcium 9.3 mg/dL (8.3-10.6); Chloride 106 mmol/L (98-107); Glucose 92 mg/dL (74-106); Potassium 4.5 mmol/L (3.5-5.1); Sodium 140 mmol/L (136-145)
== END 2025-11-07 12:12 | disposition home or self-care (01) ==
LOC: NCHCN 12:11
PROVIDERS: PCP Family Medicine; Visit Provider Family Medicine
DX: I10 Essential (primary) hypertension (principal)
CPT/HCPCS: 80048